=== PATIENT | male | born 1960 | race Caucasian/White ===

== ENCOUNTER 2020-12-10 16:40 | Emergency (ER) | payer OTHER, SELFPAY ==
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
[2020-12-10 16:43] VITALS: BP 134/79; PULSE 76; RESP 16; TEMP 36.7; O2SAT 100
[2020-12-10 17:02] VITALS: BP 151/82; PULSE 72; RESP 18; TEMP 36.7; O2SAT 97
[2020-12-10 17:38] LABS: Basophils Absolute Auto 0.1 K/mm3 (0.0-0.1); Basophils Percent Auto 1.1 % (0.2-1.2); Eosinophils Absolute Auto 0.4 K/mm3 (0-0.3); Eosinophils Percent Auto 3.5 % (0-4.4); Hematocrit 46.8 % (42.0-52.0); Immature Granulocyte Absolute 0.04 K/mm3 (0.00-0.031); Immature Granulocyte Percent A 0.3 % (0-0.5); Lymphocytes Absolute Auto 3.01 K/mm3 (0.9-3.2); Lymphocytes Percent Auto 25.1 % (18.3-44.2); Mean Corpuscular HGB Conc 34.2 g/dl (32-36); Mean Corpuscular Hemoglobin 28.9 pg (26-34); Mean Corpuscular Volume 84.6 fl (80-100); Mean Platelet Volume 9.5 fl (7.4-10.4); Monocytes Absolute Auto 1.2 K/mm3 (0.1-0.6); Monocytes Percent Auto 10.2 % (2.6-8.5); Neutrophils Absolute Auto 7.2 K/mm3 (1.3-6.7); Neutrophils Percent Auto 59.8 % (45.5-73.1); Platelet Count Result 258 k/mm3 (150-375); Red Blood Count 5.53 M/mm3 (4.6-6.20); Red Cell Distribution Width 12.5 % (11.5-14.5)
[2020-12-10] MEDS: KETOROLAC 30 MG/ML VIAL (*BKC) IV PUSH (17:46)
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
[2020-12-10 17:57] LABS: Alanine Aminotransferase 28 U/L (4-50); Albumin Level 4.5 g/dL (3.5-5.1); Alkaline Phosphatase 117 U/L (38-126); Anion Gap 9 mmol/L (8-16); Aspartate Amino Transferase 24 U/L (17-59); Blood Urea Nitrogen 13 mg/dL (9-20); Calcium 9.2 mg/dL (8.4-10.2); Carbon Dioxide 25 mmol/L (22-30); Chloride 102 mmol/L (98-107); Estimated CRCL calculation 136 ml/min; Estimated Glomerular Filt Rate > 60; Glucose 201 mg/dL (75-110); Lipase 46 U/L (23-300); Potassium 4.3 mmol/L (3.4-5.0); Sodium 136 mmol/L (137-145)
[2020-12-10 18:10] LABS: Add Urine Microscopic? YES; Appearance Urine Clear (Clear); Bilirubin Urine Negative (Negative); Blood Urine Negative (Negative); Color Urine Yellow (Yellow); Glucose Urine UA 3+ mg/dL (Negative); Ketones Urine Negative (Negative); Leukocyte Esterase Ur Negative LEU/UL (Negative); Nitrate Urine Negative (Negative); Protein Urine 1+ mg/dL (Negative); RBC Urine 0-2 /hpf (0-2); Specific Grav Ur 1.018 (1.001-1.035); Urobilinogen Urine Negative mg/dL (<2.0); WBC Urine 0-3 /hpf
== END 2020-12-10 20:02 | disposition home or self-care (01) ==
PROVIDERS: Emergency Medicine; Emergency Provider General Practice; PCP Internal Medicine
DX: K63.89 Other specified diseases of intestine (principal); N40.0 Benign prostatic hyperplasia without lower urinary tract symptoms; K22.8 Other specified diseases of esophagus; E78.00 Pure hypercholesterolemia, unspecified; K57.90 Diverticulosis of intestine, part unspecified, without perforation or abscess without bleeding; K42.9 Umbilical hernia without obstruction or gangrene; K40.20 Bilateral inguinal hernia, without obstruction or gangrene, not specified as recurrent
CPT/HCPCS: 36415; 71101; 74177; 80053; 81001; 83690; 85025; 96374; 99284; J1885; Q9967

== ENCOUNTER 2022-11-13 08:41 | Emergency (ER) | payer OTHER, SELFPAY ==
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
[2022-11-13 08:45] VITALS: BP 140/80; PULSE 76; RESP 14; TEMP 36.3; O2SAT 99
== END 2022-11-13 09:02 | disposition home or self-care (01) ==
PROVIDERS: Emergency Provider Nurse Practitioner Family; PCP Family Medicine
DX: J01.90 Acute sinusitis, unspecified (principal); H10.31 Unspecified acute conjunctivitis, right eye; E78.00 Pure hypercholesterolemia, unspecified
CPT/HCPCS: 99213; G0463

== ENCOUNTER 2024-01-26 09:20 | Outpatient (CLI) | payer OTHER, SELFPAY ==
[2024-01-26 09:53] LABS: Basophils Absolute Auto 0.1 K/mm3 (0.0-0.1); Basophils Percent Auto 1.4 % (0.2-1.2); Eosinophils Absolute Auto 0.2 K/mm3 (0-0.3); Hematocrit 49.6 % (42.0-52.0); Hemoglobin 16.7 g/dL (14.0-18.0); Immature Granulocyte Absolute 0.01 K/mm3 (0.00-0.031); Immature Granulocyte Percent A 0.2 % (0-0.5); Lymphocytes Absolute Auto 2.48 K/mm3 (0.9-3.2); Lymphocytes Percent Auto 39.6 % (18.3-44.2); Mean Corpuscular HGB Conc 33.7 g/dl (32-36); Mean Corpuscular Hemoglobin 28.5 pg (26-34); Mean Corpuscular Volume 84.8 fl (80-100); Mean Platelet Volume 9.7 fl (7.4-10.4); Monocytes Absolute Auto 0.5 K/mm3 (0.1-0.6); Monocytes Percent Auto 8.3 % (2.6-8.5); Neutrophils Percent Auto 47.5 % (45.5-73.1); Platelet Count Result 279 k/mm3 (150-375); Red Blood Count 5.85 M/mm3 (4.6-6.20); Red Cell Distribution Width 12.6 % (11.5-14.5); White Blood Count 6.3 K/mm3 (4.5-10.0)
[2024-01-26 10:02] LABS: Hemoglobin A1C 10.5 % (<5.7)
[2024-01-26 10:05] LABS: Alanine Aminotransferase 30 U/L (6-50); Albumin Level 4.8 g/dL (3.5-5.1); Alkaline Phosphatase 134 U/L (38-126); Anion Gap 8 mmol/L (4-12); Aspartate Amino Transferase 22 U/L (17-59); Bilirubin,Total 0.9 mg/dL (0.2-1.3); Blood Urea Nitrogen 12 mg/dL (9-20); Calcium 9.2 mg/dL (8.4-10.2); Carbon Dioxide 26 mmol/L (22-30); Chloride 103 mmol/L (98-107); Cholesterol 226 mg/dL (0-200); Estimated Glomerular Filt Rate > 60; Glucose 281 mg/dL (65-110); HDL Direct 32 mg/dL; Potassium 4.4 mmol/L (3.4-5.0); Sodium 137 mmol/L (137-145); Triglycerides 191 mg/dL (<150)
[2024-01-26 10:18] LABS: LDL Cholesterol Direct 154 mg/dL
[2024-01-26 10:38] LABS: Prostate Specific Antigen 0.9 ng/mL (< OR = 4.0)
[2024-01-30 23:38] LABS: Testosterone Total 370 ng/dL (250-1100)
== END 2024-01-26 09:21 | disposition home or self-care (01) ==
LOC: ANHLAB 09:21
PROVIDERS: PCP Family Medicine; Visit Provider Internal Medicine
DX: Z00.00 Encounter for general adult medical examination without abnormal findings (principal); N52.9 Male erectile dysfunction, unspecified; R53.83 Other fatigue; E78.5 Hyperlipidemia, unspecified; E11.9 Type 2 diabetes mellitus without complications; Z12.5 Encounter for screening for malignant neoplasm of prostate
CPT/HCPCS: 36415; 80053; 80061; 83036; 84153; 84403; 84443; 85025; G0103

== ENCOUNTER 2025-02-20 10:05 | Outpatient (CLI) | payer OTHER, SELFPAY ==
--- OUTSIDE RECORDS SUMMARY | 2025-02-20 09:11 | XMS_ITS | Continuity of Care Document ---
Author Name [facility] Organization [facility] Care Team Providers Care Tile Mason Name Role Phone [facility] Unavailable Unavailable Problems Combined list of problems from Department of Defense and Veterans Affairs facilities. It does not include entries that were removed or entered in error. Problem Status Onset Date Problem Type Date of Resolution Comments Source breast pain Active Condition R breast , no palpable mass or abnormality, no erythema, no d/c, but is tenderness around areola. Reviewed options. Will treat empirically with Keflex because of hx fissuring/drainag e in September, ?residual microinfection but medically I think that unlikely. Given no palpable mass, imaging very unlikely to be helpful. Recommend observation, do NOT push at/traumatize area, reexamine in 1 month. f/u sooner if increasing sx, other concerns. 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 DoD BRONCHITIS Active Condition tx empiri keyur due to length of sx/PE/approaching weekend, discussed with patient, pt appreciative and understands. 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 DoD OBESITY Active Condition Pt knows h e has several reasons to lose weight. DoD PREDIABETES (IMPAIRED GLUCOSE TOLERANCE) Active Condition DoD HYPERLIPIDEMIA Active Condition And b orderline HTN now too. Pt has not had appropriate interval followup from previously abnormal studies. Will encourage close f/u if lipids and glucose still abnormal. May need to treat both. DoD red blood in bowel movement (hematochezia) Active Condition Likely second bharath to internal hemorrhoids as previously diagnosed. DoD periods of not breathing while asleep (sleep apnea) Active Condition Witnessed per . Also with snoring. Put in for sleep study. DoD ESOPHAGEAL REFLUX Active Condition No w with dysphagia. Barium swallow neg in past. Needs EGD. DoD chest pain or discomfort Active Condition Ignored/minimal iz ed for some time. Possible cardogenic component. With strong FH will need to evaluate for CAD. ETT ordered. Check BNP as well for edema and fatigue. 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 DoD SINUSITIS Active Condition Will give a tripak.Azithro has worked well in past. Cousele on use of nasal saline to improve congestion. DoD SPRAIN RIBS Inactive Condition Rib pain proportionate to strain and without instability not worrisome, however, would benefit from a relaxant and motrin. f/u in 2 weeks if persists DoD OSTEOARTHRITIS KNEE Active Condition Do D joint pain, localized in the elbow Active Condition failed OT, persistent pain. Will reeval with Xray and send to ortho. DoD DERMATOPHYTOSIS TINEA CORPORIS Inactive Condition treat for two weeks BID, if no improvement then f/u for further evaluation. 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 DoD skin: a rash [as Sx] Active Condition DoD UPPER RESPIRATORY INFECTION Inactive Condition meds as below, increase po fluids and f/u prn DoD visit for: screening malignant neoplasm colon Inactive Condition DoD CRAMP OF LIMB Inactive Condition DoD problem related to lifestyle Active Condition DoD Patient Education Dietary Reading Food Labels Inactive Condition DoD Patient Education Dietary Changing Eating Habits Inactive Condition DoD Patient Education Dietary Meal Planning Inactive Condition DoD Patient Education - Dietary Inactive Condition DoD Allergies, Adverse Reactions, Alerts Combined list of allergies from Department of Defense and Veterans Affairs facilities. It does not include entries that were removed or entered in error. Substance Category Reaction Severity Reaction type Status Date Reported Comments Source NO OUTPUT FOR NCID 390403 Drug allergy (disorder) active 11/13/2007 [facility] [employer] ([facility]) Immunizations Combined list of available immunizations from the Department of Defense and Veterans Affairs facilities. Immunization Series Date Given Administered By Site Reaction Lot Number CVX Code Drug Mathematical Scientist Status Comments Source influenza virus vaccine, split virus (incl. purified surface antigen)-reti red CODE 1 2004 Unknown, Provider [id number] San[employer]i Paste[employer] ([facility]) complet ed influenza virus vaccine, split virus (incl. purified surface antigen)- retired CODE DoD typhoid vaccine, parenteral, other than acetone-kille d, dried 1 2004 Unknown, Provider [id number] [employer]i Pasteur ([facility]) complet ed typhoid vaccine, parentera l, other than acetone-k illed, dried DoD influenza virus vaccine, split virus (incl. purified surface antigen)-reti red CODE 1 2004 Unknown, Provider [id number] 15 San[employer]i Pasteur ([facility]) complet ed influenza virus vaccine, split virus (incl. purified surface antigen)- retired CODE DoD anthrax vaccine 7 2003 Unknown, Provider [id number] 24 [facility] ([facility]) complet ed anthrax vaccine DoD influenza virus vaccine, whole virus 1 2002 Unknown, Provider [id number] 16 [email or web address] ([place]) complet ed influenza virus vaccine, whole virus DoD anthrax vaccine 6 2002 Unknown, Provider [id number] 24 [facility] ([facility]) complet ed anthrax vaccine DoD typhoid vaccine, parenteral, other than acetone-kille d, dried 1 2002 Unknown, Provider [id number] [employer] Paste[employer] ([facility]) complet ed typhoid vaccine, parentera l, other than acetone-k illed, dried DoD influenza virus vaccine, whole virus 1 2001 Unknown, Provider [id number] 16 [place] ([facility]) complet ed influenza virus vaccine, whole virus DoD meningococcal polysaccharid e vaccine (MPSV4) 1 2001 Unknown, Provider [id number] 32 [employer]i Pasteur ([facility]) complet ed meningoco ccal polysacch aride vaccine (MPSV4) DoD yellow fever vaccine 1 2001 Unknown, Provider [id number] 37 [employer] Paste[employer] ([facility]) complet ed yellow fever vaccine DoD tuberculin skin test; purified protein derivative solution, intradermal 1 2001 Unknown, Provider [id number] San[employer]i Paste[employer] ([facility]) complet ed tuberculi n skin test; purified protein derivativ e solution, intraderm al DoD influenza virus vaccine, whole virus 1 2001 Unknown, Provider [id number] 16 [employer] Paste[employer] ([facility]) complet ed influenza virus vaccine, whole virus DoD typhoid vaccine, parenteral, other than acetone-kille d, dried 1 2000 Unknown, Provider [id number] 41 [employer]i Pasteur ([facility]) complet ed typhoid vaccine, parentera l, other than acetone-k illed, dried DoD influenza virus vaccine, whole virus 1 2000 Unknown, Provider [id number] 16 [place] ([facility]) complet ed influenza virus vaccine, whole virus DoD tuberculin skin test; purified protein derivative solution, intradermal 1 2000 Unknown, Provider [id number] () complet ed tuberculi n skin test; purified protein derivativ e solution, intraderm al DoD anthrax vaccine 5 1999 Unknown, Provider [id number] 24 [facility] ([facility]) complet ed anthrax vaccine DoD influenza virus vaccine, whole virus 1 1998 Unknown, Provider 16 () complet ed influenza virus vaccine, whole virus DoD tetanus and diphtheria toxoids, adsorbed, preservative free, for adult use (2 Lf of tetanus toxoid and 2 Lf of diphtheria toxoid) 1 1998 Unknown, Provider [id number] [facility] ([facility]) complet ed tetanus and diphtheri a toxoids, adsorbed, preservat rossana free, for adult use (2 Lf of tetanus toxoid and 2 Lf of diphtheri a toxoid) DoD anthrax vaccine 4 1998 Unknown, Provider [id number] 24 [employer] [place] ([facility]) complet ed anthrax vaccine DoD anthrax vaccine 3 1997 Unknown, Provider [id number] 24 [employer] [facility] [place] ([facility]) complet ed anthrax vaccine DoD anthrax vaccine 2 1997 Unknown, Provider [id number] 24 [facility] ([facility]) complet ed anthrax vaccine DoD influenza virus vaccine, whole virus 1 1997 Unknown, Provider [id number] 16 [place] ([facility]) ([place]) complet ed influenza virus vaccine, whole virus DoD anthrax vaccine 1 1997 Unknown, Provider [id number] [facility] ([facility]) complet ed anthrax vaccine [facility] [place] Encephalitis Vaccine [place] 3 1997 Unknown, Provider 39 () complet ed [place] Encephali tis Vaccine [facility] influenza virus vaccine, whole virus 1 1996 Unknown, Provider 16 () complet ed influenza virus vaccine, whole virus [facility] tuberculin skin test; purified protein derivative solution, intradermal 1 1996 Unknown, Provider [id number] 96 [place] ([place]) complet ed tuberculi n skin test; purified protein derivativ e solution, intraderm al [facility] meningococcal polysaccharid e vaccine (MPSV4) 1 1996 Unknown, Provider 32 () complet ed meningoco ccal polysacch aride vaccine (MPSV4) [facility] typhoid vaccine, parenteral, acetone-kille d, dried ([place] ) 3 1996 Unknown, Provider 53 () complet typhoid vaccine, parentera l, acetone-k illed, dried ([place] ) [facility] hepatitis A vaccine, adult dosage 2 1995 Unknown, Provider 52 () complet ed hepatitis A vaccine, adult dosage [facility] hepatitis B vaccine, adult dosage 3 1993 Unknown, Provider 43 () complet hepatitis B vaccine, adult dosage [facility] yellow fever vaccine 1 1991 Unknown, Provider 37 () complet ed yellow fever vaccine [facility] tetanus and diphtheria toxoids, adsorbed, preservative free, for adult use (2 Lf of tetanus toxoid and 2 Lf of diphtheria toxoid) 1 1988 Unknown, Provider 09 () complet tetanus and diphtheri a toxoids, adsorbed, preservat rossana free, for adult use (2 Lf of tetanus toxoid and 2 Lf of diphtheri a toxoid) [facility] [place] Encephalitis Vaccine [place] 2 1988 Unknown, Provider 39 () complet [place] Encephali tis Vaccine [facility] trivalent poliovirus vaccine, live, oral 1 1981 Unknown, Provider 02 () complet ed trivalent polioviru s vaccine, live, oral [facility] measles, mumps and rubella virus vaccine 1 1981 Unknown, Provider 03 () complet ed measles, mumps and rubella virus vaccine [facility] Encounters Combined list of: 1) Encounters from Department of Veterans Affairs facilities going backup to the last 18 months, not all [place] inpatient encounters are included; 2) Encounters from the Department of Defense facilities going backup to 280 months. Location Location Details Encounter Type Encounter Number Reason For Visit Attending Provider ADM Date DC Date Status Disposition Source [address] [place] [address] [employer] ([facility])(Malcolm matology) OUTPATIENT [id number] skin rash REG ANTHONY 11/09 Released w/o Limitations [facility] [employer] ([facility])(D ermatol ogy) [address] [place] [address] [employer] ([facility])(Chi ropractic ) OUTPATIENT [id number] RANGEL MARTINEZ 11/13 Released w/o Limitations [address] [place] [address] [employer] ([facility])(C hiropra ctic) [facility] [employer] ([facility])(Chi ropractic ) OUTPATIENT [id number] RANGEL MARTINEZ 12/07 Released w/o Limitations [address] [place] [address] [employer] ([facility])(C hiropra ctic) [facility] [employer] ([facility])(Chi ropractic ) OUTPATIENT [id number] RANGEL MARTINEZ 12/14 Released w/o Limitations [address] [place] [address] [employer] ([facility])(C hiropra ctic) [facility] [employer] ([facility])(Chi ropractic ) OUTPATIENT [id number] RANGEL MARTINEZ 12/29 Released w/o Limitations [address] [place] [address] [employer] ([facility])(C hiropra ctic) [facility] [employer] ([facility])(Chi ropractic ) OUTPATIENT [id number] RANGEL MARTINEZ 12/30 Released w/o Limitations [address] [place] [address] [employer] ([facility])(C hiropra ctic) [facility] [employer] ([facility])(Chi ropractic ) OUTPATIENT [id number] RANGEL MARTINEZ 01/07 Released w/o Limitations [address] [place] [address] Group [employer] ([facility])(C hiropra ctic) [facility] [employer] ([facility])(Chi ropractic ) OUTPATIENT [id number] RANGEL MARTINEZ 01/14 Released w/o Limitations [address] [place] [address] [employer] [facility])(C hiropra ctic[facility] [employer] ([facility])(Chi ropractic ) OUTPATIENT [id number] RANGEL MARTINEZ 01/21 Released w/o Limitations [employer] ([facility])(C hiropra ctic) [employer] ([facility])(Malcolm matology) OUTPATIENT [id number] Dermati tis NOS GABRIELLE REG Carb[employer]al 01/25 Released w/o Limitations [employer] ([facility])(D ermatol ogy) [employer] ([facility])(Chi ropractic ) OUTPATIENT [id number] RANGEL MARTINEZ 02/01 Released w/o Limitations [employer] ([facility])(C hiropra ctic) [employer] ([facility])(Chi ropractic ) OUTPATIENT [id number] RANGEL MARTINEZ 02/09 Released w/o Limitations [employer] ([facility])(C hiropra ctic) [employer] ([facility])(Chi ropractic ) OUTPATIENT [id number] RANGEL MARTINEZ 02/18 Released w/o Limitations [employer] ([facility])(C hiropra ctic) [employer] ([facility])(Chi ropractic ) OUTPATIENT [id number] RANGEL MARTINEZ 03/09 Released w/o Limitations [employer] ([facility])(C hiropra ctic) [employer] ([facility])(Chi ropractic ) OUTPATIENT [id number] RANGEL MARTINEZ 03/22 Released w/o Limitations [employer] ([facility])(C hiropra ctic) [employer] ([facility])(Chi ropractic ) OUTPATIENT [id number] RANGEL MARTINEZ 04/13 Released w/o Limitations [employer] ([facility])(C hiropra ctic) [employer] ([facility])(Chi ropractic ) OUTPATIENT [id number] RANGEL MARTINEZ 04/22 Released w/o Limitations [employer] ([facility])(C hiropra ctic) [employer] ([facility])(Chi ropractic ) OUTPATIENT [id number] MICHELLE, RANGEL J 05/13 Released w/o Limitations [employer] ([facility])(C hiropra ctic) [employer] ([facility])(Chi ropractic ) OUTPATIENT [id number] LUL MARTINEZN J 05/27 Released w/o Limitations [employer] ([facility])(C hiropra ctic) [employer] ([facility])(Chi ropractic ) OUTPATIENT [id number] MICHELLE, RANGEL J 09/07 Released w/o Limitations [employer] ([facility])(C hiropra ctic) [employer] ([facility])(Chi ropractic ) OUTPATIENT [id number] LUL MARTINEZN J 09/09 Released w/o Limitations [employer] ([facility])(C hiropra ctic) [employer] ([facility])(Chi ropractic ) OUTPATIENT [id number] LUL MARTINEZN J 09/29 Released w/o Limitations [employer] ([facility])(C hiropra ctic) [employer] ([facility])(Chi ropractic ) OUTPATIENT [id number] MICHELLE, RANGEL J 10/13 Released w/o Limitations [employer] ([facility])(C hiropra ctic) [employer] ([facility])(Chi ropractic ) OUTPATIENT [id number] RANGEL MARTINEZ 10/27 Released w/o Limitations [employer] ([facility])(C hiropra ctic) [employer] ([facility])(Chi ropractic ) OUTPATIENT [id number] MICHELLE, RANGEL Stacy 11/10 Released w/o Limitations [employer] ([facility])(C hiropra ctic) [employer] ([facility])(Chi ropractic ) OUTPATIENT [id number] RANGEL MARTINEZ 11/25 Released w/o Limitations [employer] ([facility])(C hiropra ctic) [facility] [employer] ([facility])(Pt Neuromusc uloskelet al Clinic) OUTPATIENT [id number] patella femoral syndrom e WOODY FRAZIER 01/14 Released with Work/Duty Limitations [facility] [employer] ([facility])(P t Neuromu sculosk eletal Clinic) [facility] [employer] [facility])(Chi ropractic ) OUTPATIENT [id number] RANGEL MARTINEZ 01/14 Released w/o Limitations [facility] [employer] ([facility])(C hiropra ctic) [facility] [employer] ([facility])(Sco tt [facility] Fam Res Tm Green) OUTPATIENT [id number] PHA II and knee DEE SOLIS 01/18 Released w/o Limitations [facility] [employer] ([facility])(S cott [facility] Fam Res Tm Green) [facility] [employer] [facility])(Phy sical Therapy) OUTPATIENT [id number] CHANTEL MORE 01/18 Released w/o Limitations [facility] [employer] ([facility])(P hysical Therapy ) [facility] [employer] ([facility])(Phy sical Therapy) OUTPATIENT [id number] CHANTEL MORE 01/20 Released w/o Limitations [facility] [employer] ([facility])(P hysical Therapy ) [facility] [employer] ([facility])(Phy sical Therapy) OUTPATIENT [id number] NATALEE FENG JR 01/21 Released w/o Limitations [facility] [employer] ([facility])(P hysical Therapy ) [facility] [employer] ([facility])(Sco tt [facility] Fam Res Tm Green) OUTPATIENT [id number] rectal bleedin g DEE SOLIS 01/24 Released w/o Limitations [employer] ([facility])(S cott [facility] Fam Res Tm Green) [facility] [employer] ([facility])(Phy sical Therapy) OUTPATIENT [id number] HOUSTON UMANZOR 01/24 Released w/o Limitations [facility] [employer] ([facility])(P hysical Therapy ) [employer] ([facility])(Nut [facility]) OUTPATIENT [id number] QUINTON BORRERO 01/26 Released w/o Limitations [employer] ([facility])(N utritio nal Medicin e) [employer] ([facility])(Lif e Skills Clinic) OUTPATIENT [id number] ESTHER BINGHAM 01/26 Released w/o Limitations [employer] ([facility])(L [facility]) [employer] ([facility])(Chi ropractic ) OUTPATIENT [id number] RANGEL MARTINEZ 01/26 Released w/o Limitations [employer] ([facility])(C hiropra ctic) [employer] ([facility])(Phy sical Therapy) OUTPATIENT [id number] HOUSTON UMANZOR 01/26 Released w/o Limitations [employer] ([facility])(P hysical Therapy ) [employer] ([facility])(Phy sical Therapy) OUTPATIENT [id number] NATALEE FENG JR 01/28 Released w/o Limitations [employer] ([facility])(P hysical Therapy ) [facility] [employer] ([facility])(Pt Neuromusc uloskelet al Clinic) OUTPATIENT [id number] WOODY FRAZIER 01/31 Released with Work/Duty Limitations [employer] ([facility])(P t Neuromu sculosk eletal Clinic) [employer] ([facility])(Phy sical Therapy) OUTPATIENT [id number] CHANTEL MORE 02/01 Released w/o Limitations [employer] ([facility])(P hysical Therapy ) [employer] ([facility])(Chi ropractic ) OUTPATIENT [id number] RANGEL MARTINEZ 02/08 Released w/o Limitations [employer] ([facility])(C hiropra ctic) [employer] ([facility])(Christo rology) OUTPATIENT [id number] CRAMP OF [place]B CHRISTIANO SHEARER 02/08 Released w/o Limitations [employer] ([facility])(N eurolog y) [employer] ([facility] [facility])(Gas troentero logy Resource Sharing) OUTPATIENT [id number] red blood in bowel movemen t (hemato chezia) CHESTER ÁLVAREZ 02/08 Released w/o Limitations [employer] ([facility])(G astroen terolog y Resourc e Sharing ) [employer] ([facility])(Phy sical Therapy) OUTPATIENT [id number] KIRAN BORRERO 02/10 Released w/o Limitations [employer] ([facility])(P hysical Therapy ) [employer] ([facility])(Phy sical Therapy) OUTPATIENT [id number] HOUSTON UMANZOR 02/11 Released w/o Limitations [employer] ([facility])(P hysical Therapy ) [employer] ([facility])(Phy sical Therapy) OUTPATIENT [id number] NATALEE FENG JR 02/14 Released w/o Limitations [employer] ([facility])(P hysical Therapy ) [employer] ([facility])(Phy sical Therapy) OUTPATIENT [id number] NATALEE FENG JR 02/16 Released w/o Limitations [employer] ([facility])(P hysical Therapy ) [employer] ([facility])(Phy sical Therapy) OUTPATIENT [id number] HOUSTON UMANZOR 02/21 Released w/o Limitations [employer] ([facility])(P hysical Therapy ) [employer] ([facility])(Chi ropractic ) OUTPATIENT [id number] RANGEL MARTINEZ 02/22 Released w/o Limitations [employer] ([facility])(C hiropra ctic) [employer] ([facility])(Phy sical Therapy) OUTPATIENT [id number] HOUSTON UMANZOR 02/23 Released w/o Limitations [employer] ([facility])(P hysical Therapy ) [employer] ([facility])(Christo rology) OUTPATIENT [id number] CRAMP [employer] CHRISTIANO SHEARER Tawanna 03/01 Released w/o Limitations [employer] ([facility])(N eurolog y) [employer] ([facility])(Christo rology) OUTPATIENT [id number] CHRISTIANO SHEARER Tawanna 03/01 Released w/o Limitations [employer] ([facility])(N eurolog y) [employer] ([facility])(Chi ropractic ) OUTPATIENT [id number] RANGEL MARTINEZ 03/08 Released w/o Limitations [employer] ([facility])(C hiropra ctic) [employer] ([facility])(Pt Neuromusc uloskelet al Clinic) OUTPATIENT [id number] WOODY FRAZIER 03/09 Released w/o Limitations [employer] ([facility])(P t Neuromu sculosk eletal Clinic) [employer] ([facility])(Phy sical Therapy) OUTPATIENT [id number] GISELLE MAIN 03/10 Released w/o Limitations [employer] ([facility])(P hysical Therapy ) [employer] ([facility])(Christo rology) OUTPATIENT [id number] DANOCHRISTIANO SOTELO Tawanna 03/14 Released w/o Limitations [employer] ([facility])(N eurolog y) [employer] ([facility])(Phy sical Therapy) OUTPATIENT [id number] GISELLE MAIN 03/14 Released w/o Limitations [employer] ([facility])(P hysical Therapy ) [employer] ([facility])(Gas troentero logy [employer] Sharing) OUTPATIENT [id number] f/u scope CHESTER ÁLVAREZ 03/15 Released w/o Limitations [employer] ([facility])(G astroen terolog y Resourc e Sharing ) [employer] ([facility])(Phy sical Therapy) OUTPATIENT [id number] KIRAN BORRERO 03/16 Released w/o Limitations [employer] ([facility])(P hysical Therapy ) [employer] ([facility])(Phy sical Therapy) OUTPATIENT [id number] KIRAN BORRERO 03/18 Released w/o Limitations [employer] ([facility])(P hysical Therapy ) [employer] ([facility])(Phy sical Therapy) OUTPATIENT [id number] JESSE HOLLOWAY R 03/21 Released w/o Limitations [employer] ([facility])(P hysical Therapy ) [employer] ([facility])(Phy sical Therapy) OUTPATIENT [id number] JESSE HOLLOWAY R 03/23 Released w/o Limitations [employer] ([facility])(P hysical Therapy ) [employer] ([facility])(Phy sical Therapy) OUTPATIENT [id number] HOUSTON UMANZOR 03/25 Released w/o Limitations [employer] ([facility])(P hysical Therapy ) [employer] ([facility])(Chi ropractic ) OUTPATIENT [id number] RANGEL MARTINEZ 03/28 Released w/o Limitations [employer] ([facility])(C hiropra ctic) [employer] ([facility])(Pt Neuromusc uloskelet al [facility]) OUTPATIENT [id number] WOODY FRAZIER 03/29 Released w/o Limitations [employer] ([facility])(P t Neuromu [facility] eletal [facility]) [employer] ([facility])(Chi ropractic ) OUTPATIENT [id number] RANGEL MARTINEZ 04/12 Released w/o Limitations [employer] ([facility])(C hiropra ctic) [employer] ([facility])(Sco tt [facility] Fam Res Tm Green) OUTPATIENT [id number] needs referra l for MRI LUDIN LOYA 04/18 Released w/o Limitations [employer] ([facility])(S cott [facility] Fam Res Tm Green) [employer] [facility])(Chi ropractic ) OUTPATIENT [id number] RANGEL MARTINEZ 04/26 Released w/o Limitations [employer] ([facility])(C hiropra ctic) [employer] ([facility])(Chi ropractic ) OUTPATIENT [id number] RANGEL MARTINEZ 05/11 Released w/o Limitations [employer] ([facility])(C hiropra ctic) [employer] ([facility])(Chi ropractic ) OUTPATIENT [id number] RANGEL MARTINEZ 05/25 Released w/o Limitations [employer] ([facility])(C hiropra ctic) [employer] ([facility])(Phy sical Therapy) OUTPATIENT [id number] WOODY FRAZIER 05/30 Released with Work/Duty Limitations [employer] ([facility])(P hysical Therapy ) [employer] ([facility])(Phy sical Therapy) OUTPATIENT [id number] KIRAN BORRERO 05/31 Released w/o Limitations [employer] ([facility])(P hysical Therapy ) [employer] ([facility])(Phy sical Therapy) OUTPATIENT [id number] KIRAN BORRERO 06/01 Released w/o Limitations [employer] ([facility])(P hysical Therapy ) [employer] ([facility])(Phy sical Therapy) OUTPATIENT [id number] JESSE HOLLOWAY 06/07 Released w/o Limitations [employer] ([facility])(P hysical Therapy ) [employer] ([facility])(Phy sical Therapy) OUTPATIENT [id number] NATALEE FENG JR 06/08 Released w/o Limitations [employer] ([facility])(P hysical Therapy ) [employer] ([facility])(Chi ropractic ) OUTPATIENT [id number] RANGEL MARTINEZ 06/09 Released w/o Limitations [employer] ([facility])(C hiropra ctic) [employer] ([facility])(Phy sical Therapy) OUTPATIENT [id number] HOUSTON UMANZOR. 06/10 Released w/o Limitations [employer] ([facility])(P hysical Therapy ) [employer] ([facility])(Phy sical Therapy) OUTPATIENT [id number] JESSE HOLLOWAY R 06/13 Released w/o Limitations [employer] ([facility])(P hysical Therapy ) [employer] ([facility])(Phy sical Therapy) OUTPATIENT [id number] JESSE HOLLOWAY R 06/14 Released w/o Limitations [employer] ([facility])(P hysical Therapy ) [employer] ([facility])(Phy sical Therapy) OUTPATIENT [id number] HOUSTON UMANZOR. 06/16 Released w/o Limitations [employer] ([facility])(P hysical Therapy ) [employer] ([facility])(Chi ropractic ) OUTPATIENT [id number] RANGEL MARTINEZ 06/23 Released w/o Limitations [employer] ([facility])(C hiropra ctic) [employer] ([facility])(Phy sical Therapy) OUTPATIENT [id number] WOODY FRAZIER 07/25 Released with Work/Duty Limitations [employer] ([facility])(P hysical Therapy ) [employer] [facility] [employer] ([facility])(Chi ropractic ) OUTPATIENT [id number] RANGEL MARTINEZ 07/27 Released w/o Limitations [employer] ([facility])(C hiropra ctic) [employer] ([facility])(Sco tt [facility] Fam Res Tm Green) OUTPATIENT [id number] pain left kneee SENSINTPRASHANT LUCERO 08/03 Released w/o Limitations [employer] ([facility])(S cott [facility] Fam Res Tm Green) [employer] ([facility])(Fam carole Practice Non-GME FHI2) OUTPATIENT [id number] poss sinus infecti on ESDRAS CHINCHILLA 08/05 Released w/o Limitations [employer] ([facility])(F amily Practic e Non-GME FHI2) [employer] ([facility])(Chi ropractic ) OUTPATIENT [id number] RANGEL MARTINEZ 08/10 Released w/o Limitations [employer] ([facility])(C hiropra ctic) [employer] ([facility])(Chi ropractic ) OUTPATIENT [id number] RANGEL MARTINEZ 08/23 Released w/o Limitations [employer] ([facility])(C hiropra ctic) [employer] ([facility])(Chi ropractic ) OUTPATIENT [id number] RANGEL MARTINEZ 09/05 Released w/o Limitations [employer] ([facility])(C hiropra ctic) [employer] ([facility])(Sco tt [facility] Fam Res Tm Green) TELE CONSULT [id number] LILA Whitlock 09/16 [employer] ([facility])(S cott [facility] Fam Res Tm Green) [employer] ([facility])(Chi ropractic ) OUTPATIENT [id number] ARNGEL MARTINEZ 09/20 Released w/o Limitations [employer] ([facility])(C hiropra ctic) [facility] [employer] ([facility])(Sco tt [facility] Fam Res Tm Green) OUTPATIENT [id number] lab result GARY VELASQUEZ 09/20 Released w/o Limitations [employer] ([facility])(S cott [facility] Fam Res Tm Green) [employer] ([facility])(Sco tt [facility] FAMRES Tm Blue) OUTPATIENT [id number] DEYA LUGO 10/03 Released w/o Limitations [employer] ([facility])(S cott [facility] FAMRES Tm Blue) [facility] [employer] ([facility])(Chi ropractic ) OUTPATIENT [id number] RANGEL MARTINEZ 10/04 Released w/o Limitations [employer] ([facility])(C hiropra ctic) [employer] ([facility])(VA - Orthopedi cs) OUTPATIENT [id number] OSTEOAR THRITIS KNEE ADRIANE MALLOY 10/10 Released w/o Limitations [facility] [employer] ([facility])(V A - Orthope dics) [address] [place] [address] [employer] ([facility])(Sco tt [facility] Fam Res Tm Green) OUTPATIENT [id number] left knee problem LILA CRANDALL 10/12 Released w/o Limitations [facility] [employer] ([facility])(S cott [facility] Fam Res Tm Green) [address] [place] [address] [employer] ([facility])(Phy sical Therapy) OUTPATIENT [id number] left knee PFS with patella r tendoni tis GENA GUTIERREZ 10/14 Released w/o Limitations [address] [place] [address] [employer] ([facility])(P hysical Therapy ) [address] [place] [address] [employer] ([facility])(Phy sical Therapy) OUTPATIENT [id number] NATALEE FENG JR 10/17 Released w/o Limitations [facility] [employer] ([facility])(P hysical Therapy ) [address] [place] [address] [employer] ([facility])(Opt ometry) OUTPATIENT [id number] JOSH White 10/19 Released w/o Limitations [address] [place] [address] [employer] ([facility])(O ptometr y) [address] [place] [address] [employer] ([facility])(Phy sical Therapy) OUTPATIENT [id number] NATALEE FENG JR 10/19 Released w/o Limitations [address] [place] [address] [employer] ([facility])(P hysical Therapy ) [address] [place] [address] [employer] ([facility])(Phy sical Therapy) OUTPATIENT [id number] HOUSTON UMANZOR 10/21 Released w/o Limitations [address] [place] [address] [employer] ([facility])(P hysical Therapy ) [address] [place] [address] [employer] ([facility])(Phy sical Therapy) OUTPATIENT [id number] ADA ROSARIO 10/24 Released w/o Limitations [facility] [employer] ([facility])(P hysical Therapy ) [address] [place] [address] [employer] ([facility])(Phy sical Therapy) OUTPATIENT [id number] GISELLE MAIN 10/26 Released w/o Limitations [employer] ([facility])(P hysical Therapy ) [employer] ([facility])(Phy sical Therapy) OUTPATIENT [id number] NATALEE FENG JR 10/28 Released w/o Limitations [employer] ([facility])(P hysical Therapy ) [employer] ([facility])(Phy sical Therapy) OUTPATIENT [id number] NIRAJ XIAO 10/31 Released w/o Limitations [employer] ([facility])(P hysical Therapy ) [employer] ([facility])(Phy sical Therapy) OUTPATIENT [id number] NIRAJ XIAO 11/22 Released w/o Limitations [employer] ([facility])(P hysical Therapy ) [employer] ([facility])(Phy sical Therapy) OUTPATIENT [id number] HOUSTON UMANZOR 11/29 Released w/o Limitations [employer] ([facility])(P hysical Therapy ) [employer] ([facility])(Phy sical Therapy) OUTPATIENT [id number] HOUSTON UMANZOR 12/01 Released w/o Limitations [employer] ([facility])(P hysical Therapy ) [employer] ([facility])(Chi ropractic ) OUTPATIENT [id number] JIMENA DU 12/06 Released w/o Limitations [employer] ([facility])(C hiropra ctic) [employer] ([facility])(Phy sical Therapy) OUTPATIENT [id number] FER CHUNG 12/06 Released w/o Limitations [employer] ([facility])(P hysical Therapy ) [employer] ([facility])(Sco tt [facility] Fam Res Tm Green) OUTPATIENT [id number] Left kneee pain LILA CRANDALL 12/07 Released w/o Limitations [employer] ([facility])(S cott [facility] Fam Res Tm Green) [employer] ([facility])(Phy sical Therapy) OUTPATIENT [id number] FER CHUNG 12/08 Released w/o Limitations [employer] ([facility])(P hysical Therapy ) [employer] ([facility])(Chi ropractic ) OUTPATIENT [id number] JIMENA DU R 12/13 Released w/o Limitations [employer] ([facility])(C hiropra ctic) [employer] ([facility])(Phy sical Therapy) OUTPATIENT [id number] GENA GUTIERREZ R 12/13 Released w/o Limitations [employer] ([facility])(P hysical Therapy ) [employer] ([facility])(Chi ropractic ) OUTPATIENT [id number] JIMENA DU R 12/20 Released w/o Limitations [employer] ([facility])(C hiropra ctic) [employer] ([facility])(Chi ropractic ) OUTPATIENT [id number] JIMENA DU R 01/02 Released w/o Limitations [employer] ([facility])(C hiropra ctic) [employer] ([facility])(Phy sical Therapy) OUTPATIENT [id number] MATT GENA R 01/05 Released w/o Limitations [employer] ([facility])(P hysical Therapy ) [employer] ([facility])(Chi ropractic ) OUTPATIENT [id number] JIMENA DU R 01/09 Released w/o Limitations [employer] ([facility])(C hiropra ctic) [employer] ([facility])(VA - Orthopedi cs) OUTPATIENT [id number] left knee, ADRIANE Reyes 01/13 Released w/o Limitations [employer] ([facility])(V A - Orthope dics) [employer] ([facility])(Chi ropractic ) OUTPATIENT [id number] JIMENA DU R 01/17 Released w/o Limitations [employer] ([facility])(C hiropra ctic) [employer] ([facility])(VA - Orthopedi cs) OUTPATIENT [id number] injecti on ADRIANE MALLOY 01/23 Released w/o Limitations [employer] ([facility])(V A - Orthope dics) [employer] ([facility])(Chi ropractic ) OUTPATIENT [id number] JIMENA DU 01/24 Released w/o Limitations [employer] ([facility])(C hiropra ctic) [employer] ([facility])(Chi ropractic ) OUTPATIENT [id number] RANGEL MARTINEZ 01/31 Released w/o Limitations [employer] ([facility])(C hiropra ctic) [employer] ([facility])(VA - Orthopedi cs) OUTPATIENT [id number] hyalgan #3 ADRIANE MALLOY 01/31 Released w/o Limitations [employer] ([facility])(V A - Orthope dics) [employer] ([facility])(Chi ropractic ) OUTPATIENT [id number] RANGEL MARTINEZ 02/14 Released w/o Limitations [employer] ([facility])(C hiropra ctic) [employer] ([facility])(Chi ropractic ) OUTPATIENT [id number] RANGEL MARTINEZ 03/01 Released w/o Limitations [employer] ([facility])(C hiropra ctic) [employer] ([facility])(Chi ropractic ) OUTPATIENT [id number] RANGEL MARTINEZ 03/16 Released w/o Limitations [employer] ([facility])(C hiropra ctic) [employer] ([facility])(Chi ropractic ) OUTPATIENT [id number] RANGEL MARTINEZ 03/30 Released w/o Limitations [employer] ([facility])(C hiropra ctic) [employer] ([facility])(Chi ropractic ) OUTPATIENT [id number] RANGEL MARTINZE 04/13 Released w/o Limitations [employer] ([facility])(C hiropra ctic) [facility] [employer] ([facility])(Sco tt [facility] FAMRES Tm Blue) OUTPATIENT [id number] left elbow problem BRIANNAVIC Jose 05/12 Released w/o Limitations [facility] [employer] ([facility])(S cott [facility] FAMRES Tm Blue) [address] [place] [address] [employer] ([facility])(Chi ropractic ) OUTPATIENT [id number] RANGEL MARTINEZ 07/05 Released w/o Limitations [facility] [employer] ([facility])(C hiropra ctic) [facility] [employer] ([facility])(Sco tt [facility] Fam Res Tm Green) OUTPATIENT [id number] lump on rib area STEVE KWON 07/07 Released w/o Limitations [address] [place] [address] [employer] ([facility])(S cott [facility] Fam Res Tm Green) [address] [place] [address] [employer] ([facility])(Chi ropractic ) OUTPATIENT [id number] RANGEL MARTINEZ 07/13 Released w/o Limitations [facility] [employer] ([facility])(C hiropra ctic) [facility] [employer] ([facility])(VA - Orthopedi cs) OUTPATIENT [id number] joint pain, localiz ed in the elbow MANJEET MEHTA 07/14 Released w/o Limitations [facility] [employer] ([facility])(V A - Orthope dics) [address] [place] [address] [employer] ([facility])(Chi ropractic ) OUTPATIENT [id number] RANGEL MARTINEZ 07/18 Released w/o Limitations [facility] [employer] ([facility])(C hiropra ctic) [facility] [employer] ([facility])(Sco tt [facility] [place]) OUTPATIENT [id number] f/u rash on the back KENYATTA LOPEZ 07/19 Released w/o Limitations [facility] [employer] ([facility])(S cott [facility] [place]) [facility] [employer] ([facility])(Chi ropractic ) OUTPATIENT [id number] RANGEL MARTINEZ 07/20 Released w/o Limitations [facility] [employer] ([facility])(C hiropra ctic) [facility] [employer] ([facility])([place] - Orthopedi cs) OUTPATIENT [id number] f/u elbow MANJEET MEHTA 07/20 Released w/o Limitations [employer] ([facility])(V A - Orthope dics) [employer] ([facility])(Occ upational Therapy) OUTPATIENT [id number] left lateral epicond ylitis SUZANNAFIGUEROA 07/24 Released w/o Limitations [employer] ([facility])(O ccupati onal Therapy ) [employer] ([facility])(Chi ropractic ) OUTPATIENT [id number] RANGEL MARTINEZ 07/25 Released w/o Limitations [employer] ([facility])(C hiropra ctic) [employer] ([facility])(Occ upational Therapy) OUTPATIENT [id number] SILVANA AMADOR 07/26 Released w/o Limitations [employer] ([facility])(O ccupati onal Therapy ) [facility] [employer] ([facility])(Chi ropractic ) OUTPATIENT [id number] RANGEL MARTINEZ 07/27 Released w/o Limitations [employer] ([facility])(C hiropra ctic) [employer] ([facility])(Occ upational Therapy) OUTPATIENT [id number] MARJORIESILVANA 07/28 Released w/o Limitations [employer] ([facility])(O ccupati onal Therapy ) [employer] ([facility])(Occ upational Therapy) OUTPATIENT [id number] MARJORIE SILVANACAROLE MIRANDA 07/31 Released w/o Limitations [employer] ([facility])(O ccupati onal Therapy ) [employer] ([facility])(Chi ropractic ) OUTPATIENT [id number] RANGEL MARTINEZ 08/01 Released w/o Limitations [employer] ([facility])(C hiropra ctic) [employer] ([facility])(Occ upational Therapy) OUTPATIENT [id number] IRAM MENDOZA 08/02 Released w/o Limitations [employer] ([facility])(O ccupati onal Therapy ) [employer] ([facility])(Chi ropractic ) OUTPATIENT [id number] RANGEL MARTINEZ 08/03 Released w/o Limitations [employer] ([facility])(C hiropra ctic) [employer] ([facility])(Occ upational Therapy) OUTPATIENT [id number] MARJORIE SILVANA SANABRIACE 08/07 Released w/o Limitations [employer] ([facility])(O ccupati onal Therapy ) [facility] [employer] ([facility])(Occ upational Therapy) OUTPATIENT [id number] FIGUEROA BRISENO 08/16 Released w/o Limitations [employer] ([facility])(O ccupati onal Therapy ) [employer] ([facility])(Chi ropractic ) OUTPATIENT [id number] RANGEL MARTINEZ 08/16 Released w/o Limitations [employer] ([facility])(C hiropra ctic) [facility] [employer] ([facility])(Malcolm matology) OUTPATIENT [id number] DERMATI TIS FRANCO MOORE 08/16 Released w/o Limitations [employer] ([facility])(D ermatol amador) [employer] ([facility])(Sco tt [facility] [place]) OUTPATIENT [id number] Retirem ent FLOR Gann 08/21 Released w/o Limitations [employer] ([facility])(S cott [facility] Res [place]) [facility] [employer] ([facility])([place] - Orthopedi cs) OUTPATIENT [id number] f/u left elbow s/p PT MANJEET MEHTA 08/21 Released w/o Limitations [employer] ([facility])(V A - Orthope dics) [facility] [employer] ([facility])(Chi ropractic ) OUTPATIENT [id number] RANGEL MARTINEZ 08/22 Released w/o Limitations [employer] ([facility])(C hiropra ctic) [employer] ([facility])(Car diologyPr ocedure Schedules ) OUTPATIENT [id number] chest pain or discomf ort LUDIN LOYA 08/29 Released w/o Limitations [facility] [employer] ([facility])(C ardiolo gyProce dure Schedul es) [employer] ([facility])(Occ upational Therapy) OUTPATIENT [id number] left elbow epicond ylitis FIGUEROA BRISENO 08/29 Released w/o Limitations [facility] [employer] ([facility])(O ccupati onal Therapy ) [employer] ([facility])(Occ upational Therapy) OUTPATIENT [id number] IRAM MENDOZA 08/31 Released w/o Limitations [facility] [employer] ([facility])(O ccupati onal Therapy ) [employer] ([facility])(Occ upational Therapy) OUTPATIENT [id number] IRAM MENDOZA 09/04 Released w/o Limitations [employer] ([facility])(O ccupati onal Therapy ) [employer] ([facility])(Occ upational Therapy) OUTPATIENT [id number] SILVANA AMADOR 09/06 Released w/o Limitations [employer] ([facility])(O ccupati onal Therapy ) [employer] ([facility])(Occ upational Therapy) OUTPATIENT [id number] SILVANA AMADOR 09/08 Released w/o Limitations [employer] ([facility])(O ccupati onal Therapy ) [employer] ([facility])(Occ upational Therapy) OUTPATIENT [id number] SILVANA AMADOR 09/11 Released w/o Limitations [employer] ([facility])(O ccupati onal Therapy ) [employer] ([facility])(Occ upational Therapy) OUTPATIENT [id number] FIGUEROA BRISENO 09/13 Released w/o Limitations [facility] [employer] ([facility])(O ccupati onal Therapy ) [facility] [employer] ([facility])(Fam carole Practice Non-GME FHI1) OUTPATIENT [id number] sinus infecti on he believe s LUCIANA NEAL 09/14 Released w/o Limitations [facility] [employer] ([facility])(F amily Practic e Non-GME FHI1) [address] [place] [address] [employer] ([facility])([place] - Orthopedi cs) OUTPATIENT [id number] f/u left elbow mwj MANJEET MEHTA 09/18 Released w/o Limitations [facility] [employer] ([facility])(V A - Orthope dics) [address] [place] [address] [employer] ([facility])([place] - Orthopedi cs) OUTPATIENT [id number] f/u left elbow FUCMANJEET WALKER 10/16 Released w/o Limitations [facility] [employer] ([facility])(V A - Orthope dics) [address] [place] [address] [employer] ([facility])(Occ upational Therapy) OUTPATIENT [id number] right lateral epicond ylFIGUEROA Senior 10/17 Released w/o Limitations [facility] [employer] ([facility])(O ccupati onal Therapy ) [address] [place] [address] [employer] ([facility])(Occ upational Therapy) OUTPATIENT [id number] MARJORIESILVANA 10/23 Released w/o Limitations [facility] [employer] ([facility])(O ccupati onal Therapy ) [address] [place] [address] [employer] ([facility])(Occ upational Therapy) OUTPATIENT [id number] IRAM MENDOZA 10/25 Released w/o Limitations [employer] ([facility])(O ccupati onal Therapy ) [facility] [employer] ([facility])(Occ upational Therapy) OUTPATIENT [id number] MARJORIESILVANA 10/27 Released w/o Limitations [facility] [employer] ([facility])(O ccupati onal Therapy ) [address] [place] [address] [employer] ([facility])(Occ upational Therapy) OUTPATIENT [id number] MARJORIESILVANA 10/30 Released w/o Limitations [facility] [employer] ([facility])(O ccupati onal Therapy ) [address] [place] [address] [employer] ([facility])([place] - Orthopedi cs) OUTPATIENT [id number] f/u PT and injecti on right elbow MANJEET MEHTA Charles Nicole 10/30 Released w/o Limitations [facility] [employer] ([facility])(V A - Orthope dics) [address] [place] [address] [employer] ([facility])(Occ upational Therapy) OUTPATIENT [id number] SILVANA AMADOR 11/01 Released w/o Limitations [address] [place] [address] [employer] ([facility])(O ccupati onal Therapy ) [address] [place] [address] [employer] ([facility])(Occ upational Therapy) OUTPATIENT [id number] FIGUEROA BRISENO A 11/06 Released w/o Limitations [address] [place] [address] [employer] ([facility])(O ccupati onal Therapy ) [address] [place] [address] [employer] ([facility])(Fam carole Practice Non-GME FHI1) OUTPATIENT [id number] Rash on chest ABBASISTEVE 11/21 Released w/o Limitations [address] [place] [address] [employer] ([facility])(F amily Practic e Non-GME FHI1) [facility] Outpatient Encounter [id number] 1 01/17 [facility] Procedures Combined list of: 1) Procedures from Department of Veterans Affairs facilities going back up to thelast 18 months, not all VA non-surgical procedures are included; 2) All procedures from the Department of Defense facilities. Procedure Procedure Type Code Date Perfomer Comments Sourc e OCCUPATIONAL THERAPY RE-EVALUATION 2006 DoD APPLICATION OF A MODALITY TO 1 OR MORE AREAS; ULTRASOUND, EACH 15 MINUTES 2006 DoD APPLICATION OF A MODALITY TO 1 OR MORE AREAS; ULTRASOUND, EACH 15 MINUTES 2006 DoD APPLICATION OF A MODALITY TO 1 OR MORE AREAS; ULTRASOUND, EACH 15 MINUTES 2006 DoD APPLICATION OF A MODALITY TO 1 OR MORE AREAS; ULTRASOUND, EACH 15 MINUTES 2006 DoD APPLICATION OF A MODALITY TO 1 OR MORE AREAS; ULTRASOUND, EACH 15 MINUTES 2006 DoD OCCUPATIONAL THERAPY RE-EVALUATION 2006 DoD INJECTION, METHYLPREDNISOLONE ACETATE, 40 MG 2006 DoD OCCUPATIONAL THERAPY RE-EVALUATION 2006 DoD APPLICATION OF A MODALITY TO 1 OR MORE AREAS; IONTOPHORESIS, EACH 15 MINUTES 2006 DoD APPLICATION OF A MODALITY TO 1 OR MORE AREAS; ULTRASOUND, EACH 15 MINUTES 2006 DoD APPLICATION OF A MODALITY TO 1 OR MORE AREAS; IONTOPHORESIS, EACH 15 MINUTES 2006 DoD APPLICATION OF A MODALITY TO 1 OR MORE AREAS; IONTOPHORESIS, EACH 15 MINUTES 2006 DoD APPLICATION OF A MODALITY TO 1 OR MORE AREAS; IONTOPHORESIS, EACH 15 MINUTES 2006 DoD ELECTRODES (E.G., [employer] MONITOR), PER PAIR 2006 DoD CARDIOVASCULAR STRESS TEST USING MAXIMAL OR SUBMAXIMAL TREADMILL OR BICYCLE EXERCISE,CONTINUOUS ELECTROCARDIOGRAPHIC MONITORING,AND/OR PHARMACOLOGICAL STRESS;W SUPERVISION,INTERPRETAT ION AND REPORT 2006 DoD APPLICATION OF A MODALITY TO 1 OR MORE AREAS; ELECTRICAL STIMULATION (UNATTENDED) 2006 DoD SELF-CARE/HOME MANAGMENT TRAIN (EG,ACT OF DAILY LIVING (ADL) &COMPENSAT TRAIN,MEAL PREPARATION,SAFETY PROCS,AND INSTRUCT IN USE OF ASST TECHNOLOGY DEV/ADPT EQUIP) DIR ONE-ON-ONE CONT,EA 15 MINUTES 2006 DoD APPLICATION OF A MODALITY TO 1 OR MORE AREAS; HOT OR COLD PACKS 2006 DoD APPLICATION OF A MODALITY TO 1 OR MORE AREAS; IONTOPHORESIS, EACH 15 MINUTES 2006 DoD APPLICATION OF A MODALITY TO 1 OR MORE AREAS; ELECTRICAL STIMULATION (UNATTENDED) 2006 DoD APPLICATION OF A MODALITY TO 1 OR MORE AREAS; IONTOPHORESIS, EACH 15 MINUTES 2006 DoD APPLICATION OF A MODALITY TO 1 OR MORE AREAS; ELECTRICAL STIMULATION (UNATTENDED) 2006 DoD APPLICATION OF A MODALITY TO 1 OR MORE AREAS; IONTOPHORESIS, EACH 15 MINUTES 2006 DoD APPLICATION OF A MODALITY TO 1 OR MORE AREAS; IONTOPHORESIS, EACH 15 MINUTES 2006 DoD CHIROPRACTIC MANIPULATIVE TREATMENT (CMT); SPINAL, 3-4 REGIONS 2006 DoD APPLICATION OF A MODALITY TO 1 OR MORE AREAS; IONTOPHORESIS, EACH 15 MINUTES 2006 DoD APPLICATION OF A MODALITY TO 1 OR MORE AREAS; ELECTRICAL STIMULATION (UNATTENDED) 2006 DoD ELECTRODES (E.G., APNEA MONITOR), PER PAIR 2006 DoD INJECTION, METHYLPREDNISOLONE ACETATE, 40 MG 2006 DoD APPLICATION OF A MODALITY TO 1 OR MORE AREAS; ELECTRICAL STIMULATION (UNATTENDED) 2006 DoD APPLICATION OF A MODALITY TO 1 OR MORE AREAS; ELECTRICAL STIMULATION (UNATTENDED) 2006 [facility] CHIROPRACTIC MANIPULATIVE TREATMENT (CMT); SPINAL, 1-2 REGIONS 2006 DoD APPLICATION OF A MODALITY TO 1 OR MORE AREAS; ELECTRICAL STIMULATION (UNATTENDED) 2006 [facility] CHIROPRACTIC MANIPULATIVE TREATMENT (CMT); SPINAL, 3-4 REGIONS 2005 DoD CHIROPRACTIC MANIPULATIVE TREATMENT (CMT); SPINAL, 3-4 REGIONS 2005 DoD CHIROPRACTIC MANIPULATIVE TREATMENT (CMT); SPINAL, 3-4 REGIONS 2005 DoD CHIROPRACTIC MANIPULATIVE TREATMENT (CMT); SPINAL, 3-4 REGIONS 2005 [facility] CHIROPRACTIC MANIPULATIVE TREATMENT (CMT); SPINAL, 3-4 REGIONS 2005 [facility] ARTHROCENTESIS, ASPIRATION AND/OR INJECTION, MAJOR JOINT OR BURSA (EG, SHOULDER, HIP, KNEE, SUBACROMIAL BURSA); WITHOUT ULTRASOUND GUIDANCE 2005 DoD CHIROPRACTIC MANIPULATIVE TREATMENT (CMT); SPINAL, 3-4 REGIONS 2005 [facility] APPLICATION OF A MODALITY TO 1 OR MORE AREAS; ELECTRICAL STIMULATION (UNATTENDED) 2005 [facility] ARTHROCENTESIS, ASPIRATION AND/OR INJECTION, MAJOR JOINT OR BURSA (EG, SHOULDER, HIP, KNEE, SUBACROMIAL BURSA); WITHOUT ULTRASOUND GUIDANCE 2005 DoD APPLICATION OF A MODALITY TO 1 OR MORE AREAS; HOT OR COLD PACKS 2005 [facility] ARTHROCENTESIS, ASPIRATION AND/OR INJECTION, MAJOR JOINT OR BURSA (EG, SHOULDER, HIP, KNEE, SUBACROMIAL BURSA); WITHOUT ULTRASOUND GUIDANCE 2005 DoD APPLICATION OF A MODALITY TO 1 OR MORE AREAS; HOT OR COLD PACKS 2005 [facility] PHYSICAL THERAPY RE-EVALUATION 2005 DoD APPLICATION OF A MODALITY TO 1 OR MORE AREAS; ELECTRICAL STIMULATION (UNATTENDED) 2005 [facility] CHIROPRACTIC MANIPULATIVE TREATMENT (CMT); SPINAL, 3-4 REGIONS 2005 [facility] PHYSICAL THERAPY RE-EVALUATION 2005 DoD CHIROPRACTIC MANIPULATIVE TREATMENT (CMT); SPINAL, 3-4 REGIONS 2005 DoD APPLICATION OF A MODALITY TO 1 OR MORE AREAS; HOT OR COLD PACKS 2005 DoD APPLICATION OF A MODALITY TO 1 OR MORE AREAS; IONTOPHORESIS, EACH 15 MINUTES 2005 DoD CHIROPRACTIC MANIPULATIVE TREATMENT (CMT); SPINAL, 3-4 REGIONS 2005 DoD APPLICATION OF A MODALITY TO 1 OR MORE AREAS; IONTOPHORESIS, EACH 15 MINUTES 2005 DoD APPLICATION OF A MODALITY TO 1 OR MORE AREAS; IONTOPHORESIS, EACH 15 MINUTES 2005 DoD PHYSICAL THERAPY RE-EVALUATION 2005 DoD THERAPEUTIC PROCEDURE, 1 OR MORE AREAS, EACH 15 MINUTES; THERAPEUTIC EXERCISES TO DEVELOP STRENGTH AND ENDURANCE, RANGE OF MOTION AND FLEXIBILITY 2005 DoD APPLICATION OF A MODALITY TO 1 OR MORE AREAS; ULTRASOUND, EACH 15 MINUTES 2005 DoD APPLICATION OF A MODALITY TO 1 OR MORE AREAS; ULTRASOUND, EACH 15 MINUTES 2005 DoD APPLICATION OF A MODALITY TO 1 OR MORE AREAS; ULTRASOUND, EACH 15 MINUTES 2005 DoD APPLICATION OF A MODALITY TO 1 OR MORE AREAS; ULTRASOUND, EACH 15 MINUTES 2005 DoD APPLICATION OF A MODALITY TO 1 OR MORE AREAS; ULTRASOUND, EACH 15 MINUTES 2005 DoD FITTING OF SPECTACLES, EXCEPT FOR APHAKIA; MONOFOCAL 2005 DoD APPLICATION OF A MODALITY TO 1 OR MORE AREAS; ULTRASOUND, EACH 15 MINUTES 2005 DoD THERAPEUTIC PROCEDURE, 1 OR MORE AREAS, EACH 15 MINUTES; THERAPEUTIC EXERCISES TO DEVELOP STRENGTH AND ENDURANCE, RANGE OF MOTION AND FLEXIBILITY 2005 DoD ARTHROCENTESIS, ASPIRATION AND/OR INJECTION, MAJOR JOINT OR BURSA (EG, SHOULDER, HIP, KNEE, SUBACROMIAL BURSA); WITHOUT ULTRASOUND GUIDANCE 2005 DoD CHIROPRACTIC MANIPULATIVE TREATMENT (CMT); SPINAL, 3-4 REGIONS 2005 DoD CHIROPRACTIC MANIPULATIVE TREATMENT (CMT); SPINAL, 3-4 REGIONS 2005 DoD CHIROPRACTIC MANIPULATIVE TREATMENT (CMT); SPINAL, 3-4 REGIONS 2005 DoD CHIROPRACTIC MANIPULATIVE TREATMENT (CMT); SPINAL, 3-4 REGIONS 2005 DoD CHIROPRACTIC MANIPULATIVE TREATMENT (CMT); SPINAL, 3-4 REGIONS 2005 DoD CHIROPRACTIC MANIPULATIVE TREATMENT (CMT); SPINAL, 3-4 REGIONS 2005 DoD PHYSICAL THERAPY RE-EVALUATION 2005 DoD CHIROPRACTIC MANIPULATIVE TREATMENT (CMT); SPINAL, 3-4 REGIONS 2004 DoD APPLICATION OF A MODALITY TO 1 OR MORE AREAS; HOT OR COLD PACKS 2004 DoD APPLICATION OF A MODALITY TO 1 OR MORE AREAS; HOT OR COLD PACKS 2004 DoD APPLICATION OF A MODALITY TO 1 OR MORE AREAS; HOT OR COLD PACKS 2004 DoD APPLICATION OF A MODALITY TO 1 OR MORE AREAS; HOT OR COLD PACKS 2004 DoD CHIROPRACTIC MANIPULATIVE TREATMENT (CMT); SPINAL, 3-4 REGIONS 2004 DoD APPLICATION OF A MODALITY TO 1 OR MORE AREAS; HOT OR COLD PACKS 2004 DoD APPLICATION OF A MODALITY TO 1 OR MORE AREAS; HOT OR COLD PACKS 2004 DoD APPLICATION OF A MODALITY TO 1 OR MORE AREAS; HOT OR COLD PACKS 2004 DoD APPLICATION OF A MODALITY TO 1 OR MORE AREAS; HOT OR COLD PACKS 2004 DoD PHYSICAL THERAPY RE-EVALUATION 2004 DoD CHIROPRACTIC MANIPULATIVE TREATMENT (CMT); SPINAL, 3-4 REGIONS 2004 DoD CHIROPRACTIC MANIPULATIVE TREATMENT (CMT); SPINAL, 3-4 REGIONS 2004 DoD CHIROPRACTIC MANIPULATIVE TREATMENT (CMT); SPINAL, 1-2 REGIONS 2004 DoD CHIROPRACTIC MANIPULATIVE TREATMENT (CMT); SPINAL, 3-4 REGIONS 2004 DoD PHYSICAL THERAPY RE-EVALUATION 2004 DoD CHIROPRACTIC MANIPULATIVE TREATMENT (CMT); SPINAL, 3-4 REGIONS 2004 DoD APPLICATION OF A MODALITY TO 1 OR MORE AREAS; HOT OR COLD PACKS 2004 DoD THERAPEUTIC PROCEDURE, 1 OR MORE AREAS, EACH 15 MINUTES; THERAPEUTIC EXERCISES TO DEVELOP STRENGTH AND ENDURANCE, RANGE OF MOTION AND FLEXIBILITY 2004 DoD APPLICATION OF A MODALITY TO 1 OR MORE AREAS; HOT OR COLD PACKS 2004 DoD THERAPEUTIC PROCEDURE, 1 OR MORE AREAS, EACH 15 MINUTES; THERAPEUTIC EXERCISES TO DEVELOP STRENGTH AND ENDURANCE, RANGE OF MOTION AND FLEXIBILITY 2004 DoD THERAPEUTIC PROCEDURE, 1 OR MORE AREAS, EACH 15 MINUTES; THERAPEUTIC EXERCISES TO DEVELOP STRENGTH AND ENDURANCE, RANGE OF MOTION AND FLEXIBILITY 2004 DoD APPLICATION OF A MODALITY TO 1 OR MORE AREAS; HOT OR COLD PACKS 2004 DoD SELF-CARE/HOME MANAGMENT TRAIN (EG,ACT OF DAILY LIVING (ADL) &COMPENSAT TRAIN,MEAL PREPARATION,SAFETY PROCS,AND INSTRUCT IN USE OF ASST TECHNOLOGY DEV/ADPT EQUIP) DIR ONE-ON-ONE CONT,EA 15 MINUTES 2004 DoD SELF-CARE/HOME MANAGMENT TRAIN (EG,ACT OF DAILY LIVING (ADL) &COMPENSAT TRAIN,MEAL PREPARATION,SAFETY PROCS,AND INSTRUCT IN USE OF ASST TECHNOLOGY DEV/ADPT EQUIP) DIR ONE-ON-ONE CONT,EA 15 MINUTES 2004 DoD CHIROPRACTIC MANIPULATIVE TREATMENT (CMT); SPINAL, 3-4 REGIONS 2004 DoD UNLISTED SPECIAL SERVICE, PROCEDURE OR REPORT 2004 DoD NEEDLE ELECTROMYOGRAPHY; 1 EXTREMITY WITH OR WITHOUT RELATED PARASPINAL AREAS 2004 DoD NERVE CONDUCTION, AMPLITUDE AND LATENCY/VELOCITY STUDY, EACH NERVE, ANY/ALL SITE(S) ALONG THE NERVE; MOTOR, WITH F-WAVE STUDY 2004 DoD APPLICATION OF A MODALITY TO 1 OR MORE AREAS; HOT OR COLD PACKS 2004 DoD CHIROPRACTIC MANIPULATIVE TREATMENT (CMT); SPINAL, 3-4 REGIONS 2004 DoD APPLICATION OF A MODALITY TO 1 OR MORE AREAS; HOT OR COLD PACKS 2004 DoD SELF-CARE/HOME MANAGMENT TRAIN (EG,ACT OF DAILY LIVING (ADL) &COMPENSAT TRAIN,MEAL PREPARATION,SAFETY PROCS,AND INSTRUCT IN USE OF ASST TECHNOLOGY DEV/ADPT EQUIP) DIR ONE-ON-ONE CONT,EA 15 MINUTES 2004 DoD SELF-CARE/HOME MANAGMENT TRAIN (EG,ACT OF DAILY LIVING (ADL) &COMPENSAT TRAIN,MEAL PREPARATION,SAFETY PROCS,AND INSTRUCT IN USE OF ASST TECHNOLOGY DEV/ADPT EQUIP) DIR ONE-ON-ONE CONT,EA 15 MINUTES 2004 DoD APPLICATION OF A MODALITY TO 1 OR MORE AREAS; HOT OR COLD PACKS 2004 DoD THERAPEUTIC PROCEDURE, 1 OR MORE AREAS, EACH 15 MINUTES; THERAPEUTIC EXERCISES TO DEVELOP STRENGTH AND ENDURANCE, RANGE OF MOTION AND FLEXIBILITY 2004 [facility] COLONOSCOPY, FLEXIBLE; DIAGNOSTIC, INCLUDING COLLECTION OF SPECIMEN(S) BY BRUSHING OR WASHING, WHEN PERFORMED (SEPARATE PROCEDURE) 2004 [facility] CHIROPRACTIC MANIPULATIVE TREATMENT (CMT); SPINAL, 3-4 REGIONS 2004 [facility] APPLICATION OF A MODALITY TO 1 OR MORE AREAS; HOT OR COLD PACKS 2004 [facility] PHYSICAL THERAPY RE-EVALUATION 2004 [facility] APPLICATION OF A MODALITY TO 1 OR MORE AREAS; ELECTRICAL STIMULATION (MANUAL), EACH 15 MINUTES 2004 [facility] APPLICATION OF A MODALITY TO 1 OR MORE AREAS; HOT OR COLD PACKS 2004 [facility] CHIROPRACTIC MANIPULATIVE TREATMENT (CMT); SPINAL, 3-4 REGIONS 2004 [facility] HEALTH AND BEHAVIOR INTERVENTION, EACH 15 MINUTES, [id number]; GROUP (2 OR MORE PATIENTS) 2004 [facility] MEDICAL NUTRITION THERAPY; GROUP (2 OR MORE INDIVIDUAL(S)), EACH 30 MINUTES 2004 [facility] APPLICATION OF A MODALITY TO 1 OR MORE AREAS; HOT OR COLD PACKS 2004 [facility] APPLICATION OF A MODALITY TO 1 OR MORE AREAS; HOT OR COLD PACKS 2004 [facility] APPLICATION OF A MODALITY TO 1 OR MORE AREAS; ELECTRICAL STIMULATION (UNATTENDED) 2004 [facility] SELF-CARE/HOME MANAGMENT TRAIN (EG,ACT OF DAILY LIVING (ADL) &COMPENSAT TRAIN,MEAL PREPARATION,SAFETY PROCS,AND INSTRUCT IN USE OF ASST TECHNOLOGY DEV/ADPT EQUIP) DIR ONE-ON-ONE CONT,EA 15 MINUTES 2004 [facility] CHIROPRACTIC MANIPULATIVE TREATMENT (CMT); SPINAL, 3-4 REGIONS 2004 [facility] APPLICATION OF A MODALITY TO 1 OR MORE AREAS; HOT OR COLD PACKS 2004 [facility] CHIROPRACTIC MANIPULATIVE TREATMENT (CMT); SPINAL, 3-4 REGIONS 2004 [facility] CHIROPRACTIC MANIPULATIVE TREATMENT (CMT); SPINAL, 3-4 REGIONS 2004 [facility] CHIROPRACTIC MANIPULATIVE TREATMENT (CMT); SPINAL, 3-4 REGIONS 2004 [facility] CHIROPRACTIC MANIPULATIVE TREATMENT (CMT); SPINAL, 3-4 REGIONS 2004 [facility] CHIROPRACTIC MANIPULATIVE TREATMENT (CMT); SPINAL, 3-4 REGIONS 2004 [facility] CHIROPRACTIC MANIPULATIVE TREATMENT (CMT); SPINAL, 3-4 REGIONS 2004 [facility] CHIROPRACTIC MANIPULATIVE TREATMENT (CMT); SPINAL, 3-4 REGIONS 2004 DoD CHIROPRACTIC MANIPULATIVE TREATMENT (CMT); SPINAL, 3-4 REGIONS 2003 DoD THERAPEUTIC PROCEDURE, 1 OR MORE AREAS, EACH 15 MINUTES; THERAPEUTIC EXERCISES TO DEVELOP STRENGTH AND ENDURANCE, RANGE OF MOTION AND FLEXIBILITY 2003 DoD CHIROPRACTIC MANIPULATIVE TREATMENT (CMT); SPINAL, 3-4 REGIONS 2003 [facility] THERAPEUTIC PROCEDURE(S), GROUP (2 OR MORE INDIVIDUALS) 2003 DoD THERAPEUTIC PROCEDURE, 1 OR MORE AREAS, EACH 15 MINUTES; THERAPEUTIC EXERCISES TO DEVELOP STRENGTH AND ENDURANCE, RANGE OF MOTION AND FLEXIBILITY 2003 DoD CHIROPRACTIC MANIPULATIVE TREATMENT (CMT); SPINAL, 3-4 REGIONS 2003 DoD CHIROPRACTIC MANIPULATIVE TREATMENT (CMT); SPINAL, 3-4 REGIONS 2003 DoD CHIROPRACTIC MANIPULATIVE TREATMENT (CMT); SPINAL, 3-4 REGIONS 2003 DoD CHIROPRACTIC MANIPULATIVE TREATMENT (CMT); SPINAL, 3-4 REGIONS 2003 DoD CHIROPRACTIC MANIPULATIVE TREATMENT (CMT); SPINAL, 3-4 REGIONS 2003 DoD CHIROPRACTIC MANIPULATIVE TREATMENT (CMT); SPINAL, 3-4 REGIONS 2003 DoD CHIROPRACTIC MANIPULATIVE TREATMENT (CMT); SPINAL, 3-4 REGIONS 2003 DoD CHIROPRACTIC MANIPULATIVE TREATMENT (CMT); SPINAL, 3-4 REGIONS 2003 DoD CHIROPRACTIC MANIPULATIVE TREATMENT (CMT); SPINAL, 3-4 REGIONS 2003 DoD CHIROPRACTIC MANIPULATIVE TREATMENT (CMT); SPINAL, 3-4 REGIONS 2003 DoD APPLICATION OF A MODALITY TO 1 OR MORE AREAS; HOT OR COLD PACKS 2003 DoD APPLICATION OF A MODALITY TO 1 OR MORE AREAS; ELECTRICAL STIMULATION (UNATTENDED) 2003 DoD CHIROPRACTIC MANIPULATIVE TREATMENT (CMT); SPINAL, 3-4 REGIONS 2003 DoD CHIROPRACTIC MANIPULATIVE TREATMENT (CMT); SPINAL, 3-4 REGIONS 2003 DoD CHIROPRACTIC MANIPULATIVE TREATMENT (CMT); SPINAL, 3-4 REGIONS 2003 DoD CHIROPRACTIC MANIPULATIVE TREATMENT (CMT); SPINAL, 3-4 REGIONS 2003 DoD CHIROPRACTIC MANIPULATIVE TREATMENT (CMT); SPINAL, 3-4 REGIONS 2003 DoD MEDICAL NUTRITION THERAPY; GROUP (2 OR MORE INDIVIDUAL(S)), EACH 30 MINUTES 2003 DoD CHIROPRACTIC MANIPULATIVE TREATMENT (CMT); SPINAL, 3-4 REGIONS 2003 DoD CHIROPRACTIC MANIPULATIVE TREATMENT (CMT); SPINAL, 3-4 REGIONS 2003 DoD MEDICAL NUTRITION THERAPY; GROUP (2 OR MORE INDIVIDUAL(S)), EACH 30 MINUTES 2003 DoD CHIROPRACTIC MANIPULATIVE TREATMENT (CMT); SPINAL, 1-2 REGIONS 2003 DoD CHIROPRACTIC MANIPULATIVE TREATMENT (CMT); SPINAL, 1-2 REGIONS 2003 DoD VASECTOMY, UNILATERAL OR BILATERAL (SEPARATE PROCEDURE), INCLUDING POSTOPERATIVE SEMEN EXAM(S) 2003 DoD CHIROPRACTIC MANIPULATIVE TREATMENT (CMT); SPINAL, 3-4 REGIONS 2003 DoD CHIROPRACTIC MANIPULATIVE TREATMENT (CMT); SPINAL, 3-4 REGIONS 2003 DoD CHIROPRACTIC MANIPULATIVE TREATMENT (CMT); SPINAL, 3-4 REGIONS 2003 DoD CHIROPRACTIC MANIPULATIVE TREATMENT (CMT); SPINAL, 3-4 REGIONS 2003 DoD CHIROPRACTIC MANIPULATIVE TREATMENT (CMT); SPINAL, 1-2 REGIONS 2002 DoD CHIROPRACTIC MANIPULATIVE TREATMENT (CMT); SPINAL, 3-4 REGIONS 2002 [facility] DETERMINATION OF REFRACTIVE STATE 2002 DoD MANUAL THERAPY TECHNIQUES (EG, MOBILIZATION/ MANIPULATION, MANUAL LYMPHATIC DRAINAGE, MANUAL TRACTION), 1 OR MORE REGIONS, EACH 15 MINUTES 2002 DoD MANUAL THERAPY TECHNIQUES (EG, MOBILIZATION/ MANIPULATION, MANUAL LYMPHATIC DRAINAGE, MANUAL TRACTION), 1 OR MORE REGIONS, EACH 15 MINUTES 2002 DoD CHIROPRACTIC MANIPULATIVE TREATMENT (CMT); SPINAL, 1-2 REGIONS 2002 DoD MANUAL THERAPY TECHNIQUES (EG, MOBILIZATION/ MANIPULATION, MANUAL LYMPHATIC DRAINAGE, MANUAL TRACTION), 1 OR MORE REGIONS, EACH 15 MINUTES 2002 DoD CHIROPRACTIC MANIPULATIVE TREATMENT (CMT); SPINAL, 1-2 REGIONS 2002 DoD CHIROPRACTIC MANIPULATIVE TREATMENT (CMT); SPINAL, 1-2 REGIONS 2002 DoD CHIROPRACTIC MANIPULATIVE TREATMENT (CMT); SPINAL, 1-2 REGIONS 2002 DoD CHIROPRACTIC MANIPULATIVE TREATMENT (CMT); SPINAL, 1-2 REGIONS 2002 DoD CHIROPRACTIC MANIPULATIVE TREATMENT (CMT); SPINAL, 1-2 REGIONS 2002 DoD CERVICAL TRACTION EQUIPMENT NOT REQUIRING ADDITIONAL STAND OR FRAME 2002 DoD CHIROPRACTIC MANIPULATIVE TREATMENT (CMT); SPINAL, 1-2 REGIONS 2002 DoD CERVICAL TRACTION EQUIPMENT NOT REQUIRING ADDITIONAL STAND OR FRAME 2002 DoD MANUAL THERAPY TECHNIQUES (EG, MOBILIZATION/ MANIPULATION, MANUAL LYMPHATIC DRAINAGE, MANUAL TRACTION), 1 OR MORE REGIONS, EACH 15 MINUTES 2002 DoD CERVICAL TRACTION EQUIPMENT NOT REQUIRING ADDITIONAL STAND OR FRAME 2002 DoD MANUAL THERAPY TECHNIQUES (EG, MOBILIZATION/ MANIPULATION, MANUAL LYMPHATIC DRAINAGE, MANUAL TRACTION), 1 OR MORE REGIONS, EACH 15 MINUTES 2002 DoD MANUAL THERAPY TECHNIQUES (EG, MOBILIZATION/ MANIPULATION, MANUAL LYMPHATIC DRAINAGE, MANUAL TRACTION), 1 OR MORE REGIONS, EACH 15 MINUTES 2002 DoD APPLICATION OF A MODALITY TO 1 OR MORE AREAS; TRACTION, MECHANICAL 2002 [facility] SUPP &MATERIAL (EXCEPT SPECTACLE),PROVID,THE PHYS/OTH QUALIFIED HEALTH AUTOMOBILE MECHANIC ASSISTANT OVER &ABOVE THOSE USUALLY INCLD W THE OFFICE VISIT/OTH SER RENDERED (LIST DRUG,TRAYS,SUPP,OR MATERIAL PROVID) 2002 DoD CERVICAL TRACTION EQUIPMENT NOT REQUIRING ADDITIONAL STAND OR FRAME 2002 DoD CHIROPRACTIC MANIPULATIVE TREATMENT (CMT); SPINAL, 1-2 REGIONS 2002 DoD NERVE CONDUCTION, AMPLITUDE AND LATENCY/VELOCITY STUDY, EACH NERVE; SENSORY 2002 DoD CHIROPRACTIC MANIPULATIVE TREATMENT (CMT); SPINAL, 1-2 REGIONS 2002 DoD SELF-CARE/HOME MANAGMENT TRAIN (EG,ACT OF DAILY LIVING (ADL) &COMPENSAT TRAIN,MEAL PREPARATION,SAFETY PROCS,AND INSTRUCT IN USE OF ASST TECHNOLOGY DEV/ADPT EQUIP) DIR ONE-ON-ONE CONT,EA 15 MINUTES 2002 DoD CERVICAL TRACTION EQUIPMENT NOT REQUIRING ADDITIONAL STAND OR FRAME 2002 [facility] APPLICATION OF A MODALITY TO 1 OR MORE AREAS; TRACTION, MECHANICAL 2002 DoD APPLICATION OF A MODALITY TO 1 OR MORE AREAS; TRACTION, MECHANICAL 2002 DoD SUPP &MATERIAL (EXCEPT SPECTACLE),PROVID,THE PHYS/OTH QUALIFIED HEALTH AUTOMOBILE MECHANIC ASSISTANT OVER &ABOVE THOSE USUALLY INCLD W THE OFFICE VISIT/OTH SER RENDERED (LIST DRUG,TRAYS,SUPP,OR MATERIAL PROVID) 2002 DoD APPLICATION OF A MODALITY TO 1 OR MORE AREAS; TRACTION, MECHANICAL 2002 DoD THERAPEUTIC PROCEDURE, 1 OR MORE AREAS, EACH 15 MINUTES; THERAPEUTIC EXERCISES TO DEVELOP STRENGTH AND ENDURANCE, RANGE OF MOTION AND FLEXIBILITY 2002 DoD APPLICATION OF A MODALITY TO 1 OR MORE AREAS; TRACTION, MECHANICAL 2002 DoD THERAPEUTIC PROCEDURE, 1 OR MORE AREAS, EACH 15 MINUTES; THERAPEUTIC EXERCISES TO DEVELOP STRENGTH AND ENDURANCE, RANGE OF MOTION AND FLEXIBILITY 2002 DoD EXERCISE EQUIPMENT 2002 [facility] EDUCATIONAL SUPPLIES, SUCH BOOKS, TAPES, AND PAMPHLETS, FOR THE PATIENT'S EDUCATION AT COST TO PHYSICIAN OR OTHER QUALIFIED HEALTH AUTOMOBILE MECHANIC ASSISTANT 2002 DoD SELF-CARE/HOME MANAGMENT TRAIN (EG,ACT OF DAILY LIVING (ADL) &COMPENSAT TRAIN,MEAL PREPARATION,SAFETY PROCS,AND INSTRUCT IN USE OF ASST TECHNOLOGY DEV/ADPT EQUIP) DIR ONE-ON-ONE CONT,EA 15 MINUTES 2002 [facility] SELF-CARE/HOME MANAGMENT TRAIN (EG,ACT OF DAILY LIVING (ADL) &COMPENSAT TRAIN,MEAL PREPARATION,SAFETY PROCS,AND INSTRUCT IN USE OF ASST TECHNOLOGY DEV/ADPT EQUIP) DIR ONE-ON-ONE CONT,EA 15 MINUTES 2002 [facility] Modalities Ultrasound Modalities Ultrasound [id number] 2005 HOUSTON UMANZOR [facility] Modalities Ultrasound Modalities Ultrasound 30865 2005 NATALEE FENG JR [facility] Visual Agee Test Intermediate Examination Visual Agee Test Intermediate Examination [id number] 2005 JOSH ANTHONY Determination Of Refractive State Determination Of Refractive State 08611 2005 JOSH ANTHONY [employer] Fitting Monofocals (Not For Aphakia) [employer] Fitting Monofocals (Not For Aphakia) 13455 2005 JOSH ANTHONY [facility] Ophthalmological New Patient Start Comprehensive Care Ophthalmological New Patient Start Comprehensive Care [id number] 2005 JOSH ANTHONY [facility] Modalities Ultrasound Modalities Ultrasound 44110 2005 NATALEE FENG JR [facility] Physical Medicine Physical Therapy Evaluation Physical Medicine Physical Therapy Evaluation 48690 2005 GENA GUTIERREZ [facility] Physical Therapy: ___ Se ion Segments, 15 Minutes Each Physical Therapy: ___ Session Segments, 15 Minutes Each 42133 2005 GENA GUTIERREZ [facility] Arthrocentesis Injection Of Knee Joint Arthrocentesis Injection Of Knee Joint 44914 2005 ADRIANE MALLOY [facility] Chiropractic Manip Treatmt (CMT) Spinal Three To Four Region Chiropractic Manip Treatmt (CMT) Spinal [facility] [place] Region 90921 2005 RANGEL MARTINEZ Chiropractic Manip Treatmt (CMT) Spinal Three To Four Region Chiropractic Manip Treatmt (CMT) Spinal Three [place] 89577 2005 RANGEL MARTINEZ Chiropractic Manip Treatmt (CMT) Spinal Three To Four Region Chiropractic Manip Treatmt (CMT) Spinal Three To Four Region 46673 2005 RANGEL MARTINEZ Chiropractic Manip Treatmt (CMT) Spinal Three To Four Region Chiropractic Manip Treatmt (CMT) Spinal Three To Four Region 57904 2005 RANGEL MARTINZE Chiropractic Manip Treatmt (CMT) Spinal Three To Four Region Chiropractic Manip Treatmt (CMT) Spinal Three [place] Region 08194 2005 RANGEL MARTINEZ Chiropractic Manip Treatmt (CMT) Spinal Three To Four Region Chiropractic Manip Treatmt (CMT) Spinal Three To Four Region 43107 2005 RANGEL MARTINEZ Physical Medicine Physical Therapy Re-Evaluation Physical Medicine Physical Therapy Re-Evaluation 53688 2005 WOODY FRAZIER [facility] Chiropractic Manip Treatmt (CMT) Spinal Three To Four Region Chiropractic Manip Treatmt (CMT) Spinal Three To Four Region 13680 2004 RANGEL MARTINEZ Physical Therapy: ___ Se ion Segments, 15 Minutes Each Physical Therapy: ___ Session Segments, 15 Minutes Each 15840 2004 HOUSTON UMANZOR Modalities Ultrasound Modalities Ultrasound 88833 2004 HOUSTON UMANZOR Modalities Heat Hot Packs Modalities Heat Hot Packs 22339 2004 HOUSTON UMANZOR Modalities Ultrasound Modalities Ultrasound 37829 2004 JESSE TUCKER DoD Modalities Heat Hot Packs Modalities Heat Hot Packs 69855 2004 JESSE TUCKER DoD Modalities Ultrasound Modalities Ultrasound 02307 2004 JESSE TUCKER R DoD Modalities Heat Hot Packs Modalities Heat Hot Packs 55591 2004 JESSE TUCKER Physical Therapy: ___ Se ion Segments, 15 Minutes Each Physical Therapy: ___ Session Segments, 15 Minutes Each 27333 2004 HOUSTON UMANZOR Modalities Ultrasound Modalities Ultrasound 36350 2004 HOUSTON UMANZOR Modalities Heat Hot Packs Modalities Heat Hot Packs 63884 2004 HOUSTON UMANZOR Chiropractic Manip Treatmt (CMT) Spinal Three To Four Region Chiropractic Manip Treatmt (CMT) Spinal Three To Four Region 74647 2004 RANGEL MARTINEZ DoD Modalities Ultrasound Modalities Ultrasound 66640 2004 NATALEE FENG JR DoD Modalities Heat Hot Packs Modalities Heat Hot Packs 48041 2004 NATALEE FENG JR DoD Modalities Ultrasound Modalities Ultrasound 14195 2004 JESSE TUCKER DoD Modalities Heat Hot Packs Modalities Heat Hot Packs 05740 2004 JESSE TUCKER DoD Modalities Heat Hot Packs Modalities Heat Hot Packs 06758 2004 KIRAN BORRERO DoD Modalities Ultrasound Modalities Ultrasound 77887 2004 KIRAN BORRERO DoD Modalities Ultrasound Modalities Ultrasound 10303 2004 KIRAN BORRERO DoD Modalities Heat Hot Packs Modalities Heat Hot Packs 58543 2004 KIRAN OBRRERO DoD Physical Medicine Physical Therapy Re-Evaluation Physical Medicine Physical Therapy Re-Evaluation 54219 2004 WOODY FRAZIER DoD Chiropractic Manip Treatmt (CMT) Spinal Three To Four Region Chiropractic Manip Treatmt (CMT) Spinal Three [place] Region 06826 2004 RANGEL MARTINEZ [facility] Chiropractic Manip Treatmt (CMT) Spinal Three To Four Region Chiropractic Manip Treatmt (CMT) Spinal Three To Four Region 59511 2004 RANGEL MARTINEZ Chiropractic Manip Treatmt (CMT) Spinal One To Two Regions Chiropractic Manip Treatmt (CMT) Spinal One To Two Regions 37867 2004 RANGEL MARTINEZ Chiropractic Manip Treatmt (CMT) Spinal Three To Four Region Chiropractic Manip Treatmt (CMT) Spinal Three To Four Region 95318 2004 RANGEL MARTINEZ [facility] Physical Medicine Physical Therapy Re-Evaluation Physical Medicine Physical Therapy Re-Evaluation 42062 2004 WOODY FRAZIER [facility] Chiropractic Manip Treatmt (CMT) Spinal Three To Four Region Chiropractic Manip Treatmt (CMT) Spinal Three To Four Region 91473 2004 RANGEL MARTINEZ Modalities Cryotherapy Cold Packs Modalities Cryotherapy Cold Packs 23128 2004 HOUSTON UMANZOR Physical Therapy: ___ Se ion Segments, 15 Minutes Each Physical Therapy: ___ Session Segments, 15 Minutes Each 47895 2004 HOUSTON UMANZOR Modalities Cryotherapy Cold Packs Modalities Cryotherapy Cold Packs 36406 2004 JESSE TUCKER [facility] Physical Therapy: ___ Se ion Segments, 15 Minutes Each Physical Therapy: ___ Session Segments, 15 Minutes Each 03798 2004 JESSE TUCKER Modalities Cryotherapy Cold Packs Modalities Cryotherapy Cold Packs 34690 2004 JESSE TUCKER [facility] Physical Therapy: ___ Se ion Segments, 15 Minutes Each Physical Therapy: ___ Session Segments, 15 Minutes Each 24034 2004 JESSE TUCKER [facility] Modalities Cryotherapy Cold Packs Modalities Cryotherapy Cold Packs 38801 2004 KIRAN BORRERO [facility] Physical Therapy: ___ Se ion Segments, 15 Minutes Each Physical Therapy: ___ Session Segments, 15 Minutes Each 53635 2004 KIRAN BORRERO [facility] Modalities Cryotherapy Cold Packs Modalities Cryotherapy Cold Packs 02078 2004 KIRAN BORRERO [facility] Physical Therapy: ___ Se ion Segments, 15 Minutes Each Physical Therapy: ___ Session Segments, 15 Minutes Each 28682 2004 KIRAN BORRERO Therex x30 mins [facility] Training And Self-Care Skills Training And Self-Care Skills 70042 2004 [facility] Modalities Cryotherapy Cold Packs Modalities Cryotherapy Cold Packs 77947 2004 [facility] Physical Therapy: ___ Se ion Segments, 15 Minutes Each Physical Therapy: ___ Session Segments, 15 Minutes Each 34464 2004 [facility] Modalities Cryotherapy Cold Packs Modalities Cryotherapy Cold Packs 83191 2004 [facility] Training And Self-Care Skills Training And Self-Care Skills 67276 2004 [facility] Physical Therapy: ___ Se ion Segments, 15 Minutes Each Physical Therapy: ___ Session Segments, 15 Minutes Each 51312 2004 [facility] Physical Medicine Physical Therapy Re-Evaluation Physical Medicine Physical Therapy Re-Evaluation 22059 2004 WOODY FRAZIER [facility] Training And Self-Care Skills Additional 15 Minutes Training And Self-Care Skills Additional 15 Minutes 26537 2004 WOODY FRAZIER [facility] Chiropractic Manip Treatmt (CMT) Spinal Three To Four Region Chiropractic Manip Treatmt (CMT) Spinal Three To Four Region 76422 2004 RANGEL MARTINEZ [facility] EMG Of One Extremity and Related Paraspinal Areas EMG Of One Extremity and Related Paraspinal Areas 60907 2004 CHRISTIANO SHEARER [facility] NCS Brachial Plexus Motor Pathway NCS Brachial Plexus Motor Pathway 18810 2004 CHRISTIANO SHEARER LE-1 UE-2 [facility] NCS Brachial Plexus Sensory Pathway NCS Brachial Plexus Sensory Pathway 93143 2004 CHRISTIANO SHEARER ue-2, le-1 [facility] NCS Amplitude/Latency/Veloc ity Motor With F-Wave Study NCS Amplitude/Latency/V elocity Motor With F-Wave Study 81815 2004 CHRISTIANO SHEARER [facility] Modalities Cryotherapy Cold Packs Modalities Cryotherapy Cold Packs 64281 2004 HOUSTON UMANZOR Physical Therapy: ___ Se ion Segments, 15 Minutes Each Physical Therapy: ___ Session Segments, 15 Minutes Each 72554 2004 HOUSTON UMANZOR Chiropractic Manip Treatmt (CMT) Spinal Three To Four Region Chiropractic Manip Treatmt (CMT) Spinal Three To Four Region 08782 2004 RANGEL MARTINEZ [facility] Modalities Cryotherapy Cold Packs Modalities Cryotherapy Cold Packs 15202 2004 HOUSTON UMANZOR Physical Therapy: ___ Se ion Segments, 15 Minutes Each Physical Therapy: ___ Session Segments, 15 Minutes Each 86880 2004 HOUSTON UMANZOR Physical Therapy: ___ Se ion Segments, 15 Minutes Each Physical Therapy: ___ Session Segments, 15 Minutes Each 39875 2004 NATALEE FENG JR [facility] Modalities Cryotherapy Cold Packs Modalities Cryotherapy Cold Packs 24415 2004 NATALEE FENG JR [facility] Training And Self-Care Skills Training And Self-Care Skills 50167 2004 NATALEE FENG JR [facility] Training And Self-Care Skills Training And Self-Care Skills 08726 2004 NATALEE FENG JR [facility] Physical Therapy: ___ Se ion Segments, 15 Minutes Each Physical Therapy: ___ Session Segments, 15 Minutes Each 20921 2004 NATALEE FENG JR [facility] Modalities Cryotherapy Cold Packs Modalities Cryotherapy Cold Packs 11259 2004 NATALEE FENG JR [facility] Modalities Cryotherapy Cold Packs Modalities Cryotherapy Cold Packs 06275 2004 HOUSTON UMANZOR Physical Therapy: ___ Se ion Segments, 15 Minutes Each Physical Therapy: ___ Session Segments, 15 Minutes Each 99461 2004 HOUSTON UMANZOR Modalities Cryotherapy Cold Packs Modalities Cryotherapy Cold Packs 27348 2004 KIRAN BORRERO [facility] Physical Therapy: ___ Se ion Segments, 15 Minutes Each Physical Therapy: ___ Session Segments, 15 Minutes Each 31780 2004 KIRAN BORRERO [facility] Colonoscopy (Fiberoptic) 2004 CHESTER ÁLVAREZ [facility] Chiropractic Manip Treatmt (CMT) Spinal Three To Four Region Chiropractic Manip Treatmt (CMT) Spinal Three To Four Region 23362 2004 RANGEL MARTINEZ [facility] Training And Self-Care Skills Training And Self-Care Skills 03462 2004 CHANTEL MORE [facility] Modalities Cryotherapy Cold Packs Modalities Cryotherapy Cold Packs 99898 2004 CHANTEL MORE [facility] Physical Therapy: ___ Se ion Segments, 15 Minutes Each Physical Therapy: ___ Session Segments, 15 Minutes Each 74915 2004 CHANTEL MORE [facility] Physical Medicine Physical Therapy Re-Evaluation Physical Medicine Physical Therapy Re-Evaluation 46217 2004 WOODY FRAZIER [facility] Modalities Electrical Stimulation Modalities Electrical Stimulation 96504 2004 NATALEE FENG JR [facility] Physical Therapy: ___ Se ion Segments, 15 Minutes Each Physical Therapy: ___ Session Segments, 15 Minutes Each 55121 2004 NATALEE FENG JR [facility] Modalities Cryotherapy Cold Packs Modalities Cryotherapy Cold Packs 37556 2004 NATALEE FENG JR [facility] Physical Therapy: ___ Se ion Segments, 15 Minutes Each Physical Therapy: ___ Session Segments, 15 Minutes Each 42489 2004 HOUSTON UMANZOR Modalities Electrical Stimulation Modalities Electrical Stimulation 33279 2004 HOUSTON UMANZOR Modalities Cryotherapy Cold Packs Modalities Cryotherapy Cold Packs 83129 2004 HOUSTON UMANZOR Chiropractic Manip Treatmt (CMT) Spinal Three To Four Region Chiropractic Manip Treatmt (CMT) Spinal Three To Four Region 43732 2004 RANGEL MARTINEZ [facility] Medical Nutrition Therapy Group (2 or More Individual(s)) Medical Nutrition Therapy Group (2 or More Individual(s)) 95294 2004 QUINTON BORRERO [facility] Health And Behav Intervention, Each 15 Min Grp (2 Or More) Health And Behav Intervention, Each 15 Min Grp (2 Or More) 24888 2004 ESTHER BINGHAM Physical Therapy: ___ Se ion Segments, 15 Minutes Each Physical Therapy: ___ Session Segments, 15 Minutes Each 76166 2004 HOUSTON UMANZOR Modalities Electrical Stimulation Modalities Electrical Stimulation 53633 2004 HOUSTON UMANZOR Modalities Cryotherapy Cold Packs Modalities Cryotherapy Cold Packs 20288 2004 HOUSTON UMANZOR Occupational Therapy Re-Evaluation Occupational Therapy Re-Evaluation 89282 2006 FIGUEROA BRISENO Modalities Ultrasound Modalities Ultrasound 14303 2006 MARJORIE SILVANA SANABRIAMATT [place] Modalities Ultrasound Modalities Ultrasound 20201 2006 MARJORIE SILVANA MIRANDA [facility] Modalities Ultrasound Modalities Ultrasound 20931 2006 MARJORIE SILVANA MIRANDA [facility] Modalities Ultrasound Modalities Ultrasound 33555 2006 IRAM MENDOZA Modalities Ultrasound Modalities Ultrasound 70519 2006 MARJORIE SILVANA MIRANDA [facility] Occupational Therapy Re-Evaluation Occupational Therapy Re-Evaluation 46911 2006 FIGUEROA BRISENO Injection Of Tendon Sheath Injection Of Tendon Sheath 78290 2006 SOCORRO MEHTA Injection, methylprednisolone acetate, 40 mg 2006 SOCORRO MEHTA Occupational Therapy Re-Evaluation Occupational Therapy Re-Evaluation 39779 2006 FIGUEROA BRISENO Modalities Iontophoresis Modalities Iontophoresis 40326 2006 MARJORIE SILVANA MIRANDA [facility] Modalities Ultrasound Modalities Ultrasound 97836 2006 MARJORIE SILVANACAROLE MIRANDA [facility] Modalities Iontophoresis Modalities Iontophoresis 85690 2006 MARJORIE SILVANA SANABRIACE [facility] Modalities Iontophoresis Modalities Iontophoresis 78835 2006 IRAM MENDOZA Modalities Iontophoresis Modalities Iontophoresis 68490 2006 IRAM MENDOZA Modalities Iontophoresis Modalities Iontophoresis 58754 2006 FIGUEROA BRISENO Electrodes (e.g., apnea monitor), per pair 2006 FIGUEROA BRISENO [facility] Occupational Therapy Evaluation Occupational Therapy Evaluation 16962 2006 FIGUEROA BRISENO Elbow orthosis, elastic, prefabricated, includes fitting and adjustment (e.g., neoprene, Lycra) 2006 FIGUEROA BRISENO Cardiac Stre Test, Phys. Supervision, Interp. And Report Cardiac Stress Test, Phys. Supervision, Interp. And Report 58071 2006 LUDIN LOYA [facility] Modalities Heat Hot Packs Modalities Heat Hot Packs 94253 2006 RANGEL MARTINEZ Modalities Electrical Stimulation Unattended Modalities Electrical Stimulation Unattended 47536 2006 RANGEL MARTINEZ [facility] Modalities Electrical Stimulation Unattended Modalities Electrical Stimulation Unattended 58031 2006 RANGEL MARTINEZ Modalities Heat Hot Packs Modalities Heat Hot Packs 01123 2006 RANGEL MARTINEZ Occupational Therapy Re-Evaluation Occupational Therapy Re-Evaluation 73605 2006 FIGUEROA BRISENO Training And Self-Care Skills Training And Self-Care Skills 18937 2006 FIGUEROA BRISENO [facility] Modalities Iontophoresis Modalities Iontophoresis 83556 2006 SILVANA AMADOR [facility] Modalities Electrical Stimulation Unattended Modalities Electrical Stimulation Unattended 08185 2006 RANGEL MARTINEZ Modalities Cryotherapy Cold Packs Modalities Cryotherapy Cold Packs 89752 2006 RANGEL MARTINEZ [facility] Modalities Iontophoresis Modalities Iontophoresis 40981 2006 IRAM MENDOZA [facility] Modalities Cryotherapy Cold Packs Modalities Cryotherapy Cold Packs 97778 2006 RANGEL MARTINEZ Modalities Electrical Stimulation Unattended Modalities Electrical Stimulation Unattended 25736 2006 RANGEL MARTINEZ [facility] Modalities Iontophoresis Modalities Iontophoresis 57648 2006 SILVANA AMADOR [facility] Modalities Iontophoresis Modalities Iontophoresis 46332 2006 SILVANA AMADOR [facility] Modalities Heat Hot Packs Modalities Heat Hot Packs 09350 2006 RANGEL MARTINEZ Modalities Electrical Stimulation Unattended Modalities Electrical Stimulation Unattended 88385 2006 RANGEL MARTINEZ Chiropractic Manip Treatmt (CMT) Spinal Three To Four Region Chiropractic Manip Treatmt (CMT) Spinal Three To Four Region 32712 2006 RANGEL MARTINEZ Modalities Iontophoresis Modalities Iontophoresis 52079 2006 SILVANA AMADOR Alessandro Modalities Electrical Stimulation Unattended Modalities Electrical Stimulation Unattended [id number] 2006 RANGEL MARTINEZ Modalities Cryotherapy Cold Packs Modalities Cryotherapy Cold Packs 61922 2006 RANGEL MARTINEZ Exercises A isted Exercises For ROM Exercises Assisted Exercises For ROM 72162 2006 FIGUEROA BRISENO Training And Self-Care Skills Training And Self-Care Skills 21147 2006 FIGUEROA BRISENO Modalities Iontophoresis Modalities Iontophoresis 61072 2006 FIGUEROA BRISENO Electrodes (e.g., apnea monitor), per pair 2006 FIGUEROA BRISENO Occupational Therapy Evaluation Occupational Therapy Evaluation 55280 2006 FIGUEROA BRISENO Injection Of Tendon Sheath Injection Of Tendon Sheath 11849 2006 SOCORRO MEHTA Injection, methylprednisolone acetate, 40 mg 2006 SOCORRO MEHTA Modalities Electrical Stimulation Unattended Modalities Electrical Stimulation Unattended 42885 2006 RANGEL MARTINEZ Modalities Cryotherapy Cold Packs Modalities Cryotherapy Cold Packs 76949 2006 RANGEL MARTINEZ Modalities Cryotherapy Cold Packs Modalities Cryotherapy Cold Packs 55308 2006 RANGEL MARTINEZ Modalities Electrical Stimulation Unattended Modalities Electrical Stimulation Unattended 99032 2006 RANGEL MARTINEZ Chiropractic Manip Treatmt (CMT) Spinal One To Two Regions Chiropractic Manip Treatmt (CMT) Spinal One To Two Regions 07082 2006 RANGEL MARTINEZ Modalities Electrical Stimulation Unattended Modalities Electrical Stimulation Unattended 51462 2006 RANGEL MARTINEZ Modalities Cryotherapy Cold Packs Modalities Cryotherapy Cold Packs 35223 2006 RANGEL MARTINEZ Chiropractic Manip Treatmt (CMT) Spinal Three To Four Region Chiropractic Manip Treatmt (CMT) Spinal Three To Four Region 90195 2005 RANGEL MARTINEZ Chiropractic Manip Treatmt (CMT) Spinal Three To Four Region Chiropractic Manip Treatmt (CMT) Spinal Three To Four Region 79942 2005 RANGEL MARTINEZ Modalities Heat Hot Packs Modalities Heat Hot Packs 58818 2005 RANGEL MARTINEZ Modalities Electrical Stimulation Unattended Modalities Electrical Stimulation Unattended 13511 2005 RANGEL MARTINEZ Chiropractic Manip Treatmt (CMT) Spinal Three To Four Region Chiropractic Manip Treatmt (CMT) Spinal Three To Four Region 35503 2005 RANGEL MARTINEZ Modalities Heat Hot Packs Modalities Heat Hot Packs 20581 2005 RANGEL MARTINEZ Modalities Electrical Stimulation Unattended Modalities Electrical Stimulation Unattended 17580 2005 RANGEL MARTINEZ Chiropractic Manip Treatmt (CMT) Spinal Three To Four Region Chiropractic Manip Treatmt (CMT) Spinal Three To Four Region 20398 2005 RANGEL MARTINEZ Chiropractic Manip Treatmt (CMT) Spinal Three To Four Region Chiropractic Manip Treatmt (CMT) Spinal Three To Four Region 92388 2005 RANGEL MARTINEZ Modalities Heat Hot Packs Modalities Heat Hot Packs 64697 2005 RANGEL MARTINEZ Modalities Electrical Stimulation Unattended Modalities Electrical Stimulation Unattended 10212 2005 RANGEL MARTINEZ Arthrocentesis Injection Of Knee Joint Arthrocentesis Injection Of Knee Joint 18937 2005 ADRIANE MALLOY Modalities Heat Hot Packs Modalities Heat Hot Packs 18015 2005 RANGEL MARTINEZ Modalities Electrical Stimulation Unattended Modalities Electrical Stimulation Unattended 59268 2005 RANGEL MARTINEZ Chiropractic Manip Treatmt (CMT) Spinal Three To Four Region Chiropractic Manip Treatmt (CMT) Spinal Three To Four Region 45046 2005 RANGEL MARTINEZ Modalities Heat Hot Packs Modalities Heat Hot Packs 42289 2005 JIMENA DU Chiropractic Manip Treatmt (CMT) Spinal Three To Four Region Chiropractic Manip Treatmt (CMT) Spinal Three To Four Region 15574 2005 JIMENA DU Modalities Electrical Stimulation Unattended Modalities Electrical Stimulation Unattended 21998 2005 JIMENA DU Arthrocentesis Injection Of Knee Joint Arthrocentesis Injection Of Knee Joint 2005 ADRIANE MALLOY Chiropractic Manip Treatmt (CMT) Spinal Three To Four Region Chiropractic Manip Treatmt (CMT) Spinal Three To Four Region 47605 2005 JIMENA DU Modalities Heat Hot Packs Modalities Heat Hot Packs 13656 2005 JIMENA DU Modalities Electrical Stimulation Unattended Modalities Electrical Stimulation Unattended 32449 2005 JIMENA DU Arthrocentesis Injection Of Knee Joint Arthrocentesis Injection Of Knee Joint 2005 ADRIANE MALLOY Modalities Electrical Stimulation Unattended Modalities Electrical Stimulation Unattended 43415 2005 JIMENA DU Chiropractic Manip Treatmt (CMT) Spinal Three To Four Region Chiropractic Manip Treatmt (CMT) Spinal Three To Four Region 09413 2005 JIMENA DU Modalities Heat Hot Packs Modalities Heat Hot Packs 33742 2005 JIMENA DU Physical Medicine Physical Therapy Re-Evaluation Physical Medicine Physical Therapy Re-Evaluation 45153 2005 GENA GUTIERREZ Modalities Electrical Stimulation Unattended Modalities Electrical Stimulation Unattended 04263 2005 JIMENA DU Chiropractic Manip Treatmt (CMT) Spinal Three To Four Region Chiropractic Manip Treatmt (CMT) Spinal Three To Four Region 57281 2005 FLORIANJIMENA Charles [facility] Modalities Heat Hot Packs Modalities Heat Hot Packs 59812 2005 JIMENA DU [facility] Chiropractic Manip Treatmt (CMT) Spinal Three To Four Region Chiropractic Manip Treatmt (CMT) Spinal Three To Four Region 96353 2005 JIMENA DU [facility] Physical Medicine Physical Therapy Re-Evaluation Physical Medicine Physical Therapy Re-Evaluation 19148 2005 GENA GUTIERREZ Chiropractic Manip Treatmt (CMT) Spinal Three To Four Region Chiropractic Manip Treatmt (CMT) Spinal Three To Four Region 01291 2005 JIMENA DU Modalities Cryotherapy Cold Packs Modalities Cryotherapy Cold Packs 48390 2005 FRE CHUNG Modalities Iontophoresis Modalities Iontophoresis 22354 2005 FER CHUNG Chiropractic Manip Treatmt (CMT) Spinal Three To Four Region Chiropractic Manip Treatmt (CMT) Spinal Three To Four Region 98512 2005 JIMENA DU Modalities Iontophoresis Modalities Iontophoresis 59346 2005 HOUSTON UMANZOR Modalities Iontophoresis Modalities Iontophoresis 76028 2005 HOUSTON UMANZOR Physical Medicine Physical Therapy Re-Evaluation Physical Medicine Physical Therapy Re-Evaluation 98354 2005 NIRAJ XIAO Physical Medicine Physical Therapy Re-Evaluation Physical Medicine Physical Therapy Re-Evaluation 55496 2005 NIRAJ XIAO [facility] Physical Therapy: ___ Se ion Segments, 15 Minutes Each Physical Therapy: ___ Session Segments, 15 Minutes Each 41638 2005 NIRAJ XIAO TFL stretches, hamstring stretches -- 10 minutes DoD Modalities Ultrasound Modalities Ultrasound 48060 2005 NATALEE FENG JR [facility] Modalities Ultrasound Modalities Ultrasound 16469 2005 GISELLE MAIN [facility] Modalities Ultrasound Modalities Ultrasound 80135 2005 ADA ROSARIO [facility] Physical Therapy: ___ Se ion Segments, 15 Minutes Each Physical Therapy: ___ Session Segments, 15 Minutes Each 36860 2004 NATALEE FENG JR [facility] Modalities Electrical Stimulation Unattended Modalities Electrical Stimulation Unattended 44482 2004 NATALEE FENG JR [facility] Modalities Cryotherapy Cold Packs Modalities Cryotherapy Cold Packs 62101 2004 NATALEE FENG JR [facility] Physical Therapy: ___ Se ion Segments, 15 Minutes Each Physical Therapy: ___ Session Segments, 15 Minutes Each 58681 2004 CHANTEL MORE [facility] Modalities Cryotherapy Cold Packs Modalities Cryotherapy Cold Packs 94510 2004 CHANTEL MORE [facility] Modalities Electrical Stimulation Unattended Modalities Electrical Stimulation Unattended 25307 2004 CHANTEL MORE [facility] Modalities Cryotherapy Cold Packs Modalities Cryotherapy Cold Packs 81511 2004 CHANTEL MORE [facility] Physical Therapy: ___ Se ion Segments, 15 Minutes Each Physical Therapy: ___ Session Segments, 15 Minutes Each 89436 2004 CHANTEL MORE [facility] Training And Self-Care Skills Training And Self-Care Skills 05236 2004 CHANTEL MORE [facility] Modalities Electrical Stimulation Unattended Modalities Electrical Stimulation Unattended 39106 2004 CHANTEL MORE [facility] Chiropractic Manip Treatmt (CMT) Spinal Three To Four Region Chiropractic Manip Treatmt (CMT) Spinal Three To Four Region 74363 2004 RANGEL MARTINEZ [facility] Physical Medicine Physical Therapy Evaluation Physical Medicine Physical Therapy Evaluation 36566 2004 WOODY FRAZIER [facility] Modalities Electrical Stimulation Unattended Modalities Electrical Stimulation Unattended 44701 2004 WOODY FRAZIER [facility] Modalities Cryotherapy Cold Packs Modalities Cryotherapy Cold Packs 78051 2004 WOODY FRAZIER [facility] Chiropractic Manip Treatmt (CMT) Spinal Three To Four Region Chiropractic Manip Treatmt (CMT) Spinal [facility] [place] [facility] 44645 2004 RANGEL MARTINEZ Chiropractic Manip Treatmt (CMT) Spinal Three To Four Region Chiropractic Manip Treatmt (CMT) Spinal [facility] [place] [facility] 31007 2004 RANGEL MARTINEZ [facility] Chiropractic Manip Treatmt (CMT) Spinal Three To Four Region Chiropractic Manip Treatmt (CMT) Spinal Three [place] Region 42176 2004 RANGEL MARTINEZ [facility] Chiropractic Manip Treatmt (CMT) Spinal Three To Four Region Chiropractic Manip Treatmt (CMT) Spinal Three [place] Four Region 00485 2004 RANGEL MARTINEZ [facility] Chiropractic Manip Treatmt (CMT) Spinal Three To Four Region Chiropractic Manip Treatmt (CMT) Spinal Three [place] Region 72064 2004 RANGEL MARTINEZ [facility] Chiropractic Manip Treatmt (CMT) Spinal Three To Four Region Chiropractic Manip Treatmt (CMT) Spinal [facility] [id number] RANGEL MARTINEZ [facility] Chiropractic Manip Treatmt (CMT) Spinal Three To Four Region Chiropractic Manip Treatmt (CMT) Spinal [facility] [place] [facility] 11430 2004 RANGEL MARTINEZ [facility] Chiropractic Manip Treatmt (CMT) Spinal Three To Four Region Chiropractic Manip Treatmt (CMT) Spinal [facility] 17647 2003 RANGEL MARTINEZ [facility] Chiropractic Manip Treatmt (CMT) Spinal Three To Four Region Chiropractic Manip Treatmt (CMT) Spinal [facility] 24477 2003 RANGEL MARTINEZ [facility] Chiropractic Manip Treatmt (CMT) Spinal Three To Four Region Chiropractic Manip Treatmt (CMT) Spinal [facility] [place] [facility] 94550 2003 RANGEL MARTINEZ [facility] Chiropractic Manip Treatmt (CMT) Spinal Three To Four Region Chiropractic Manip Treatmt (CMT) Spinal [facility] [place] [facility] 68968 2003 RANGEL MARTINEZ [facility] Chiropractic Manip Treatmt (CMT) Spinal Three To Four Region Chiropractic Manip Treatmt (CMT) Spinal Three [place] Region 60134 2003 RANGEL MARTINEZ [facility] Chiropractic Manip Treatmt (CMT) Spinal Three To Four Region Chiropractic Manip Treatmt (CMT) Spinal Three To Four Region [id number] RANGEL MARTINEZ [facility] Chiropractic Manip Treatmt (CMT) Spinal Three To Four Region Chiropractic Manip Treatmt (CMT) Spinal Three [place] Region 36459 2003 RANGEL MARTINEZ [facility] Chiropractic Manip Treatmt (CMT) Spinal Three To Four Region Chiropractic Manip Treatmt (CMT) Spinal Three [place] [facility] 60250 2003 RANGEL MARTINEZ [facility] Chiropractic Manip Treatmt (CMT) Spinal Three To Four Region Chiropractic Manip Treatmt (CMT) Spinal [facility] [place] [facility] 15530 2003 RANGEL MARTINEZ [facility] Chiropractic Manip Treatmt (CMT) Spinal Three To Four [facility] Chiropractic Manip Treatmt (CMT) Spinal [facility] [id number] RANGEL MARTINEZ [facility] Chiropractic Manip Treatmt (CMT) Spinal Three To Four Region Chiropractic Manip Treatmt (CMT) Spinal Three [place] [facility] Region [id number] RANGEL MARTINEZ [facility] Chiropractic Manip Treatmt (CMT) Spinal Three To Four Region Chiropractic Manip Treatmt (CMT) Spinal Three [place] Four Region 55393 2003 RANGEL MARTINEZ [facility] Modalities Electrical Stimulation Unattended Modalities Electrical Stimulation Unattended 52166 2003 RANGEL MARTINEZ [facility] Modalities Cryotherapy Cold Packs Modalities Cryotherapy Cold Packs 46731 2003 RANGEL MARTINEZ Modalities Cryotherapy Cold Packs Modalities Cryotherapy Cold Packs 51061 2003 RANGEL MARTINEZ [facility] Modalities Electrical Stimulation Unattended Modalities Electrical Stimulation Unattended 96891 2003 RANGEL MARTINEZ [facility] Chiropractic Manip Treatmt (CMT) Spinal Three To Four Region Chiropractic Manip Treatmt (CMT) Spinal Three To Four Region [id number] RANGEL MARTINEZ [facility] Chiropractic Manip Treatmt (CMT) Spinal Three To Four Region Chiropractic Manip Treatmt (CMT) Spinal [facility] [place] [facility] 35293 2003 RANGEL MARTINEZ [facility] Chiropractic Manip Treatmt (CMT) Spinal Three To Four Region Chiropractic Manip Treatmt (CMT) Spinal Three [place] Region 84784 2003 RANGEL MARTINEZ DoD Social History Combined list of available smoking, tobacco, and other social history from Department of Defense and Veterans Affairs facilities. Social History Type Response Date Comment [facility] e This section is an empty social history section. DoD
--- OUTSIDE RECORDS SUMMARY | 2025-02-20 10:14 | XMS_ITS | Clinical Summary ---
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 Name Role Phone Unavailable Primary Care Provider Unavailabl e Social History Tobacco Use Types Packs/Day Years Used Date Smoking Tobacco: Never Assessed Sex and Gender Information Value Date Recorded Sex Assigned at Not on file Legal Sex Male 4:09 PM CDT Gender Identity Not on file Sexual Orientation Not on file Plan of Treatment Health Maintenance Due Date Last Done Comments Colorectal Cancer Screening Colonoscopy (10 Years) 1960 Annual Physical 09/09/1963 Hepatitis C 1978 DTaP, Tdap and Td Vaccines ( 1 - Tdap) 09/09/1979 Pneumococcal Vaccine: 50+ Ye ars (1 of 1 - PCV) 2010 Zoster Vaccines (1 of 2) 2010 COVID-19 Vaccine ( - 2023-2 5 season) 2024 RSV Immunization or 60+ Years (1 - 1-dose 75+ series) 09/09/2035 Meningococcal B Vaccine Aged Out No l onger eligible based on patient's age to complete this topic Meningococcal Vaccine Aged Out No evan sam eligible based on patient's age to complete this topic RSV Immunizations Under 20 Months Aged Out No longer eligible based on patient's age to complete this topic
--- OUTSIDE RECORDS SUMMARY | 2025-02-20 10:14 | XMS_ITS | Clinical Summary ---
Author Organization [facility] Address [address] [place] [address] Care Team Providers Care Dowel Maker Name Role Phone Yonny Corbett Primary Care Provider [phone] Source Comments [facility],non-owned Affiliates and Associated Physician Practices is amultiple site organization consisting of ambulatory clinics and hospital sitesin [place], [place], [place] and [place]. This disclosure is being madepursuant to the Care Everywhere program and may not contain all information available regarding this patient. Last updated 18.[facility] Allergies No known active allergies Medications * Be aware that medications may not be up to date on this document. Alwaysverify current medications with the patient. Pseudoephedrine HCl (SUDAFED CONGESTION PO) Take 1 tablet by mouth every 4 hours as needed Active Active Problems Problem Noted Date Diagnosed Date Hyperlipoproteinemia 09/28/2018 Overview (09/28/2018): And borderline HTN now too. Pt has not had appropriate interval followup from previously abnormal studies. Will encourage close f/u if lipids and glucose still abnormal. May need to treat both. Segmental dysfunction 09/28/2018 Nonallopathic lesion of sacral region 02/16/2018 Nonallopathic lesion of cervical region 02/17/20 18 Myopia 02/16/2018 Mastodynia 02/16/2018 Overview (02/16/2018): R breast, no palpable mass or abnormality, no erythema, no d/c, but is tenderness around areola. Reviewed options. Will treat empirically with Keflex because of hx fissuring/drainage in September, ?residual microinfection but medically I think that unlikely. Given no palpable mass, imaging very unlikely to be helpful. Recommend observation, do NOT push at/traumatize area, reexamine in 1 month. f/u sooner if increasing sx, other concerns. Lateral epicondylitis of elbow 02/16/2018 Overview (02/16/2018): Discharge from occupational therapy -- all goals have been achieved. Esophageal reflux 02/16/2018 Overview (08/27/2018): Now with dysphagia. Barium swallow neg in past. Needs EGD. Now with dysphagia. Barium swallow neg in past. Needs EGD. 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 Chest pain 02/16/2018 Overview (08/27/2018): Ignored/minimalized for some time. Possible cardogenic component. With strong FH will need to evaluate for CAD. ETT ordered. Check BNP as well for edema and fatigue. Ignored/minimalized for some time. Possible cardogenic component. With strong FH will need to evaluate for CAD. ETT ordered. Check BNP as well for edema and fatigue. Bronchitis 02/16/2018 Overview (08/27/2018): tx empirically due to length of sx/PE/approaching weekend, discussed with patient, pt appreciative and understands. tx empirically due to length of sx/PE/approaching weekend, discussed with patient, pt appreciative and understands. Blood in stool 02/16/2018 Overview (02/16/2018): Likely secondary to internal hemorrhoids as previously diagnosed. Astigmatism 02/16/2018 Nonallopathic lesion of thoracic region 02/17/20 18 Obesity 02/16/2018 Overview (08/27/2018): Pt knows he has several reasons to lose weight. Pt knows he has several reasons to lose weight. Osteoarthritis of knee 02/16/2018 Other abnormal glucose 02/16/2018 Other and unspecified hyperlipidemia 02/16/2018 Overview (08/27/2018): And borderline HTN now too. Pt has not had appropriate interval followup from previously abnormal studies. Will encourage close f/u if lipids and glucose still abnormal. May need to treat both. And borderline HTN now too. Pt has not had appropriate interval followup from previously abnormal studies. Will encourage close f/u if lipids and glucose still abnormal. May need to treat both. Other chest pain 02/16/2018 Overview (02/16/2018): clinically and electrically negative full lona ETT, average func capacity, see paper report for full details, copy to pcm; recommend finding noncardiac cause of CP and continued cardiac risk factor modification; pt aware of limitations of test and agrees Pain in joint, lower leg 02/16/2018 Pain in joint, upper arm 02/16/2018 Overview (08/27/2018): failed OT, persistent pain. Will reeval with Xray and send to ortho. failed OT, persistent pain. Will reeval with Xray and send to ortho. Problem related to lifestyle 02/16/2018 Sleep apnea 02/16/2018 Overview (08/27/2018): Witnessed per . Also with snoring. Put in for sleep study. Witnessed per . Also with snoring. Put in for sleep study. Chronic sinusitis 02/16/2018 Overview (02/16/2018): Will give a tripak.Hajaro has worked well in past. Cousele on use of nasal saline to improve congestion. Musculoskeletal disorder and symptoms referable to neck 02/16/2018 Rash and other nonspecific skin eruption 018 BMI 40.0-44.9, adult 11/16/2017 Prediabetes 11/16/2017 Goiter 11/16/2017 Thyroid nodule 11/16/2017 Multinodular goiter Berto's thyroiditis Family History Medical History Relation Name Comments COPD - Chronic Obstructive Pulmonary Disease Father Diabetes - Type 2 Father Hearing Loss - Congenital Father COPD - Chronic Obstructive Pulmonary Disease Maternal Grandmother Diabetes - Type 2 Paternal Grandfather Diabetes - Type 2 Paternal Grandmother Thyroid Disease Sister ? Hyperthyro idism at age 17, now Hypothyroidism Relation Name Status Comments Father Maternal Grandmother Paternal Grandfather Paternal Grandmother Sister Social History Tobacco Use Types Packs/Day Years Used Date Smoking Tobacco: Never Smokeless Tobacco: Never Alcohol Use Standard Drinks/Week Comments Yes 0 (1 standard drink = 0.6 oz pur e alcohol) Socially Sex and Gender Information Value Date Recorded Sex Assigned at Not on file Legal Sex Male 5:21 PM CDT Gender Identity Not on file Sexual Orientation Not on file Last Filed Vital Signs Vital Sign Reading Time Taken Comments Blood Pressure 128/80 11/24/2020 9:02 AM CDT Pulse 62 11/24/2020 9:02 AM CDT Temperature 36.4 C (97.5 F) 11/24/2020 9:02 AM CDT Respiratory Rate 18 12/06/2019 11:31 AM CDT Oxygen Saturation 96% 11/24/2020 9:02 AM CDT Inhaled Oxygen Concentration - - Weight 133.8 kg (295 lb) 11/24/2020 9:02 AM CDT Height 185.4 cm (6' 1) 11/24/2020 9:02 AM CDT Body Mass Index 38.92 11/24/2020 9:02 AM CDT Plan of Treatment Health Maintenance Due Date Last Done Comments COLOGUARD (AGES 45-75) - COL ON CA SCREENING 1960 COLON MONITORING 1960 COLONOSCOPY - COLON CA SCREENING 1960 CT COLONOGRAPHY - COLON CA SCREENING 1960 Colorectal Cancer Screening 1960 FIT - COLON CA SCREENING 1960 FLEX SIG - COLON CA SCREENING 1960 LIPID TESTING 1960 HIV SCREENING 09/09/1975 HEPATITIS C SCREENING 09/04/1978 DTAP/TDAP/TD VACCINES (1 - Tdap) 09/09/1979 PNEUMOCOCCAL VACCINE 50+ (1 of 1 - PCV) 2010 ZOSTER VACCINE (1 of 2) 2010 SCREENING FOR DIABETES 12/06/2019 COVID-19 VACCINE (1 - 2023-2 5 season) 2024 DEPRESSION SCREENING 06/26/2024 INFLUENZA VACCINE (#1) 2025 05/11/2005 Respiratory Syncytial Virus (RSV) Vaccine Pt: or over 60 yrs (1 - 1-dose 75+ series) 09/09/2035 HEPATITIS B VACCINE Aged Out No longe r eligible based on patient's age to complete this topic HIB VACCINE Aged Out No longer eligi ble based on patient's age to complete this topic HPV VACCINE Aged Out No longer eligi ble based on patient's age to complete this topic MENINGOCOCCAL (Group B) VACC INE SHARED DECISION-MAKING Aged Out No longer eligibl e based on patient's age to complete this topic MENINGOCOCCAL GROUPS A/C/Y/W VACCINE Aged Out No longer eligible b ased on patient's age to complete this topic Insurance Care Teams Dowel Maker Relationship Specialty Start Date End Date Yonny Corbett DO [address] [place] [id number] PCP - General 09/26/19
[2025-02-20 10:20] LABS: Hematocrit 49.2 % (42.0-52.0); Hemoglobin 16.4 g/dL (14.0-18.0); Immature Granulocyte Percent A 0.1 % (0-0.5); Lymphocytes Absolute Auto 2.77 K/mm3 (0.9-3.2); Mean Corpuscular HGB Conc 33.3 g/dl (32-36); Mean Corpuscular Hemoglobin 28.6 pg (26-34); Mean Corpuscular Volume 85.9 fl (80-100); Nucleated Red Blood Cells Absolute Auto 0.000 K/mm3 (0.0-0.012); Nucleated Red Blood Cells Perc 0.0 % (0.0-0.2); Platelet Count Result 249 k/mm3 (150-375); Red Blood Count 5.73 M/mm3 (4.6-6.20); White Blood Count 7.0 K/mm3 (4.5-10.0)
[2025-02-20 10:35] LABS: Alanine Aminotransferase 46 U/L (6-50); Albumin Level 4.9 g/dL (3.5-5.1); Alkaline Phosphatase 101 U/L (38-126); Anion Gap 11 mmol/L (4-12); Aspartate Amino Transferase 49 U/L (17-59); Bilirubin,Total 0.9 mg/dL (0.2-1.3); Blood Urea Nitrogen 21 mg/dL (9-20); Calcium 9.6 mg/dL (8.4-10.2); Carbon Dioxide 24 mmol/L (22-30); Chloride 102 mmol/L (98-107); Cholesterol 219 mg/dL (0-200); Estimated Glomerular Filt Rate > 60; Glucose 159 mg/dL (65-110); HDL Direct 33 mg/dL; Potassium 4.8 mmol/L (3.4-5.0); Sodium 137 mmol/L (137-145); Total Protein 8.4 g/dL (6.3-8.2); Triglycerides 118 mg/dL (<150)
[2025-02-20 11:03] LABS: Hemoglobin A1C 6.6 % (<5.7)
[2025-02-20 11:11] LABS: Prostate Specific Antigen 1.1 ng/mL (< OR = 4.0); Thyroid Stimulating Hormone 1.250 uIU/mL (0.465-4.680)
[2025-02-20 11:20] LABS: MALB Creatinine Ratio 21.9 mg/g (0-30)
== END 2025-02-20 10:06 | disposition home or self-care (01) ==
LOC: ANHLAB 10:06
PROVIDERS: PCP Internal Medicine; Visit Provider Internal Medicine
DX: E78.5 Hyperlipidemia, unspecified (principal); E11.9 Type 2 diabetes mellitus without complications; Z12.5 Encounter for screening for malignant neoplasm of prostate; K62.5 Hemorrhage of anus and rectum; E04.1 Nontoxic single thyroid nodule
CPT/HCPCS: 36415; 80053; 80061; 82043; 83036; 84153; 84443; 85025; G0103

== ENCOUNTER 2025-05-08 00:36 | Day surgery (SDC) | payer OTHER, SELFPAY ==
[2025-04-30 08:43] VITALS: BMI 33.4
--- OUTSIDE RECORDS SUMMARY | 2025-05-08 00:39 | XMS_ITS | Clinical Summary ---
Author Organization [facility] Address [address] [place] [id number] Care Team Providers Care Application Integration Engineer Name Role Phone Unavailable Primary Care Provider [...] of 2) 2010 COVID-19 Vaccine ( - 2024-2 6 season) 2025 Influenza Adult (#1) 2025 RSV Immunization or 60+ Years (1 - 1-dose 75+ series) 09/09/2035 Hepatitis A Vaccines Aged Out No long er eligible based on patient's age to complete this topic Meningococcal B Vaccine Aged Out No l onger eligible based on patient's age to complete this topic Meningococcal Vaccine Aged Out No evan sam eligible based on patient's age to complete this topic RSV Immunizations Under 20 Months Aged Out No longer eligible based on patient's age to complete this topic
--- OUTSIDE RECORDS SUMMARY | 2025-05-08 00:39 | XMS_ITS | Clinical Summary ---
Author Organization [facility] Address [address] [place] [address] Care Team Providers Care Lime Burner Name Role Phone Yonny Corbett Primary Care Provider [phone] Source Comments [facility],non-owned Affiliates and Associated Physician Practices is amultiple site organization consisting of ambulatory clinics and hospital sitesin [place], [place], [place] and [place]. This disclosure is being madepursuant to the Care Everywhere program and may not contain all information available regarding this patient. Last updated 18.[facility] Allergies No known active allergies Medications * [...] of 2) 2010 SCREENING FOR DIABETES 12/06/2019 DEPRESSION SCREENING 06/26/2024 COVID-19 VACCINE ( - 2023-2 5 season) 2025 INFLUENZA VACCINE (#1) 2025 05/11/2005 Respiratory Syncytial [...] to complete this topic Insurance Care Teams Lime Burner Relationship Specialty Start Date End Date Yonny Corbett DO [address] [place] [id number] PCP - General 09/26/19
[2025-05-08 07:16] VITALS: BP 121/86; PULSE 72; RESP 20; TEMP 36.3; O2SAT 98; BMI 34.3
[2025-05-08] MEDS: LACTATED RINGERS 1,000 ML 150 ML IV CONT (07:19)
--- NOTE | 2025-05-08 07:48 | P.PNAN_ITS ---
Anes - Initial Pre Proc Eval Procedure: Operation Date: 05/08/25 08:30 Proposed Procedures p Diagnostic Colonoscopy - Familia Medel MD Date/Time: 05/08/25 07:48 Surgeon: Familia Medel MD Pre Op Diagnosis: Hemorrhage of anus and rectum Patient Data Age: 64 Gender: M Height: 1.85 m Weight: 118 kg Last Vital Signs Temp 36.3 C L 05/08/25 07:16 Pulse 72 05/08/25 07:16 Resp 20 05/08/25 07:16 BP 121/86 05/08/25 07:16 Pulse Ox 98 05/08/25 07:16 O2 Del Method Room Air 05/08/25 07:16 Allergies Allergy/AdvReac Type Severity Reaction Status Date / Time No Known Allergies Allergy Verified 05/08/25 07:14 Home Medications ?Medication ?Instructions ?Recorded ?Confirmed ?Type hydrocortisone acetate 25 mg 25 mg RECTAL BID #12 ea 0 02/20/25 04/30/25 Rx rectal suppository (Anusol-HC) Patient hx anesthesia problems: none Family hx anesthesia problems: none Results Review: All pre-operative results and documents have been reviewed as part of the pre- operative evaluation. [facility] Past Medical History Medical History (Updated 05/07/25 @ 10:08 by Maicol Mendes DO) Diabetes type 2, controlled MAYURI (obstructive sleep apnea) Asthma Elevated cholesterol Surgical History Surgical History H/O excision of mass 1.5cm scalp mass removed on 12/16/21 No pertinent past surgical history Family History Family History Father Hypertension Family history of diabetes mellitus in first degree relative Grandparent Cerebrovascular accident Family history of Alzheimer's disease Family history of heart disease in male family member before age 55 Other Family history of cardiovascular disease Social History Social History Smoking status: Never smoker Second hand tobacco smoke exposure: No Alcohol intake: current Drinks per week: 4 Substance use: never Substance use type: does not use Living arrangements: with family Additional living arrangements comments: [place]- [phone] Spiritual care concerns: No Anes - Eval Final PreProcedure Day of Procedure 05/08/25 07:48 Patient weight: obese Heart: regular rate and rhythm Lungs: clear to auscultation Airway: Mallampati scale class II Neurological: alert and oriented Last oral intake: >/= 8 hours ASA classification: III Emergent: no Anesthetic plan: proceed Anesthesia type and monitoring: general GIVS and standard monitoring Results Review: All pre-operative results and documents have been reviewed as part of the pre- operative evaluation. Informed Consent: The patient's anesthetic plan and its attendant risks and benefits were discussed with the patient/family/POA. Questions were solicited and answers provided to the satisfaction of the patient/family/POA.
--- NOTE | 2025-05-08 08:08 | P.HP_ITS ---
History of Present Illness History of Present Illness Consent: Risks, benefits, and alternatives have been discussed and questions answered. Patient agrees to proceed with procedure. Chief complaint: screening colonoscopy Narrative: Arie Wilcox Jr. is a 64 year old male with screening colonoscopy, last one over 10 years ago Review of Systems Review of Systems: All systems reviewed & are unremarkable except as noted in HPI and below PMFSH Past Medical History Medical History (Updated 05/08/25 @ 08:09 by Familia Medel MD) Colon cancer screening Diabetes type 2, controlled MAYURI (obstructive sleep apnea) Asthma Elevated cholesterol Surgical History Surgical History H/O excision of mass 1.5cm scalp mass removed on 12/16/21 No pertinent past surgical history Family History Family History Father Hypertension Family history of diabetes mellitus in first degree relative Grandparent Cerebrovascular accident Family history of Alzheimer's disease Family history of heart disease in male family member before age 55 Other Family history of cardiovascular disease Social History Social History Smoking status: Never smoker Second hand tobacco smoke exposure: No Alcohol intake: current Drinks per week: 4 Substance use: never Substance use type: does not use Living arrangements: with family Additional living arrangements comments: [place]- [phone] Spiritual care concerns: No Meds Home Medications and Allergies Home Medications ?Medication ?Instructions ?Recorded ?Confirmed ?Type hydrocortisone acetate 25 mg 25 mg RECTAL BID #12 ea 0 02/20/25 04/30/25 Rx rectal suppository (Anusol-HC) Allergies Allergy/AdvReac Type Severity Reaction Status Date / Time No Known Allergies Allergy Verified 05/08/25 07:14 Vital Signs Vital Signs - 24 hr 05/08/25 07:16 Temperature 97.4 F L Pulse Rate 72 Respiratory Rate 20 Blood Pressure 121/86 Pulse Oximetry 98 Oxygen Delivery Room Air Exam Const: General: comfortable and no acute distress HENMT: Face/Nose/Sinus: Normal nares present Resp: Auscultation: clear to auscultation bilaterally Cardio: Rate: regular rate Rhythm: regular rhythm GI: Inspection: non-distended GI Palp: Yes Soft to palpation Skin: General skin exam: normal color Extrem: General: normal to inspection Psych: Mental Status: mental status grossly normal Assessment and Plan Assessment and plan (1) Colon cancer screening: Code(s): Z12.11 - Encounter for screening for malignant neoplasm of colon Status: Acute Assessment and Plan: colonoscopy
--- NOTE | 2025-05-08 08:26 | S_PTH ---
PATIENT: Arie Wilcox Jr. LOC: [facility]#:[id number] AGE/SX: 64/M ROOM: RE05/08/[address]: Familia Medel MD : 1960 BED: DIS: 05/08/2025 SPEC #: [id number] RECD: 05/08/25 09:52 STATUS: VASYL REEstiven #: [id number] GOLDIE: 05/08/25 08:[address]: Familia Medel DEPT: [facility] Surgical RECD BY: Tiera Tiwari ENTERED: 05/08/25 09:52 SP TYPE: Surgical OTHR DR: Yonny Corbett DO Tissues: A - Colon Polypectomy Procedures: Hematoxylin and Eosin Stain Gross and Microscopic Level 4
[2025-05-08 08:28] VITALS: BP 117/56; PULSE 66; RESP 21; O2SAT 99
[2025-05-08 08:38] VITALS: BP 123/64; PULSE 61; RESP 16; O2SAT 98
[2025-05-08 08:48] VITALS: BP 116/64; PULSE 60; RESP 18; O2SAT 100
== END 2025-05-08 09:02 | disposition home or self-care (01) ==
PROVIDERS: PCP Internal Medicine; Referring Provider Internal Medicine; Visit Provider Internal Medicine Gastroenterology
PROC: 0DJD8ZZ Inspection of Lower Intestinal Tract, Via Natural or Artificial Opening Endoscopic (ICD-10-PCS; CPT 45378; principal; 2025-05-08 08:30)
DX: Z12.11 Encounter for screening for malignant neoplasm of colon (principal); D12.3 Benign neoplasm of transverse colon; K64.8 Other hemorrhoids
CPT/HCPCS: 45380; 88305; J2003; J2704; J7120